=== PATIENT | female | born 1975 | race African-American/Black ===

== ENCOUNTER 2021-05-19 15:22 | Outpatient (RCR) | payer OTHER, SELFPAY ==
[2021-05-19 15:39] VITALS: PULSE 102; RESP 20; TEMP 36.3; O2SAT 96
[2021-05-19] MEDS: ACETAMINOPHEN 325 MG TABLET 650 MG PO (15:41)
[2021-05-19] MEDS: diphenhydrAMINE HCl CAP 25 MG CAPSULE PO (15:41)
[2021-05-19] MEDS: FAMOTIDINE 20 MG TABLET PO (15:41)
[2021-05-19 16:40] VITALS: BP 134/79
--- NOTE | 2021-05-20 10:46 | PC.NURSE ---
Spoke to Ms. Salazar, and she stated she is not coughing as much and slept better last night. She feels this is going to help her feel better. She has no other questions at this time.
== END 2021-05-19 17:00 ==
LOC: AMCINF 15:22
PROVIDERS: PCP Internal Medicine; Visit Provider Internal Medicine Hematology & Oncology
DX: U07.1 COVID-19 (principal)
CPT/HCPCS: A9270; M0243

== ENCOUNTER → 2022-03-03 14:20 | Outpatient (CLI) | payer OTHER, SELFPAY ==
--- NOTE | ~2022-03-03 | XR_ITS ---
EXAMINATION: XR lumbar spine min 4V DATE: 03/03/2022 14:34 INDICATION: Low back pain. TECHNIQUE: 5 views of lumbar spine were obtained. COMPARISON: None. FINDINGS: There is 7 degrees dextrocurvature of thoracolumbar spine. Vertebral body heights and inter vertebral disc heights are normal. There is multilevel mild to moderate facet joint osteoarthritis. T here is an intrauterine device in expected position. IMPRESSION: 1. Lumbar facet joint osteoarthritis. Reviewed, dictated and finalized at location A.
== END ==
PROVIDERS: PCP Family Medicine; Visit Provider Family Medicine
DX: M51.36 Other intervertebral disc degeneration, lumbar region (principal)
CPT/HCPCS: 72110

== ENCOUNTER 2022-08-24 12:31 | Outpatient (CLI) | payer OTHER, SELFPAY ==
[2022-08-24 20:19] LABS: Alanine Aminotransferase 32 U/L (6-35); Albumin Level 4.7 g/dL (3.5-5.1); Alkaline Phosphatase 69 U/L (38-126); Anion Gap 3 mmol/L (8-16); Aspartate Amino Transferase 37 U/L (14-36); Bilirubin,Total 0.8 mg/dL (0.2-1.3); Blood Urea Nitrogen 11 mg/dL (7-17); Calcium 9.7 mg/dL (8.4-10.2); Carbon Dioxide 35 mmol/L (22-30); Chloride 98 mmol/L (98-107); Cholesterol 188 mg/dL (0-200); Estimated Glomerular Filt Rate > 60; Glucose 94 mg/dL (65-110); HDL Direct 59 mg/dL; Potassium 3.9 mmol/L (3.4-5.0); Sodium 136 mmol/L (137-145); Triglycerides 68 mg/dL (<150)
[2022-08-24 20:31] LABS: LDL Cholesterol Direct 90 mg/dL
[2022-08-24 20:43] LABS: Basophils Percent Auto 0.6 % (0.2-1.2); Eosinophils Absolute Auto 0.1 K/mm3 (0-0.3); Eosinophils Percent Auto 2.5 % (0-4.4); Hematocrit 44.3 % (37.0-47.0); Hemoglobin 14.5 g/dL (12.0-15.0); Immature Granulocyte Absolute 0.01 K/mm3 (0.00-0.031); Immature Granulocyte Percent A 0.2 % (0-0.5); Lymphocytes Absolute Auto 1.81 K/mm3 (0.9-3.2); Lymphocytes Percent Auto 34.2 % (18.3-44.2); Mean Corpuscular HGB Conc 32.7 g/dl (32-36); Mean Corpuscular Hemoglobin 33.6 pg (26-34); Mean Corpuscular Volume 102.8 fl (80-100); Mean Platelet Volume 11.1 fl (7.4-10.4); Monocytes Absolute Auto 0.5 K/mm3 (0.1-0.6); Monocytes Percent Auto 9.1 % (2.6-8.5); Neutrophils Absolute Auto 2.8 K/mm3 (1.3-6.7); Neutrophils Percent Auto 53.4 % (45.5-73.1); Platelet Count Result 282 k/mm3 (150-375); Red Blood Count 4.31 M/mm3 (4.2-5.4); Red Cell Distribution Width 12.2 % (11.5-14.5); White Blood Count 5.3 K/mm3 (4.5-10.0)
== END 2022-08-24 12:32 | disposition home or self-care (01) ==
LOC: ANHGOSHLAB 12:32
PROVIDERS: PCP Family Medicine; Visit Provider Family Medicine
DX: R53.83 Other fatigue (principal); E11.9 Type 2 diabetes mellitus without complications; Z13.228 Encounter for screening for other metabolic disorders; Z13.220 Encounter for screening for lipoid disorders; Z13.29 Encounter for screening for other suspected endocrine disorder
CPT/HCPCS: 36415; 80053; 80061; 83036; 84443; 85025

== ENCOUNTER 2023-02-05 07:40 | Outpatient (CLI) | payer OTHER, SELFPAY ==
--- NOTE | ~2023-02-05 | MR_ITS ---
EXAMINATION: MR ankle RT wo con DATE: 02/05/2023 08:14 INDICATION: Peroneal tendinitis, right leg. Right ankle pain. TECHNIQUE: Magnetic resonance imaging (MRI) of the right ankle was performed without intravenous cont rast. Sequences included sagittal PD-weighted FS FSE, sagittal PD-weighted FSE, coronal PD-weighted F S FSE, coronal PD-weighted FSE, axial PD-weighted FS FSE, and axial PD-weighted FSE. COMPARISON: None. FINDINGS: Medial ankle ligaments: The superficial and deep components of the deltoid ligament are normal. Lateral ankle ligaments: The anterior and posterior talofibular ligaments, calcaneofibular ligament, and anterior and posterio r tibiofibular ligaments are normal. Tendons: There is mild Achilles tendinopathy. There is mild peroneus longus tendinopathy. There is a longitudi nal split tear of peroneus longus tendon lateral to calcaneus. Peroneus brevis tendon is normal. The anterior ankle tendons are normal. The medial ankle tendons are normal. Plantar fascia: Normal. There is an enthesophyte at the calcaneal attachment. Bones/other: There is mild ankle joint osteoarthritis with mild subchondral edema-like marrow signal intensity in tibial plafond. Fluid: There is no joint effusion. IMPRESSION: 1. Longitudinal split tear of peroneus longus tendon. 2. Mild tibiotalar joint osteoarthritis. Reviewed, dictated and finalized at location A.
== END 2023-02-05 07:41 ==
LOC: MICIMG 07:41
PROVIDERS: PCP Podiatrist Foot & Ankle Surgery; Visit Provider Podiatrist Foot & Ankle Surgery
DX: M76.71 Peroneal tendinitis, right leg (principal); M19.071 Primary osteoarthritis, right ankle and foot
CPT/HCPCS: 73721

== ENCOUNTER 2023-08-27 09:58 | Outpatient (CLI) | payer OTHER, SELFPAY ==
[2023-08-27 18:56] LABS: Basophils Percent Auto 0.7 % (0.2-1.2); Eosinophils Absolute Auto 0.2 K/mm3 (0-0.3); Eosinophils Percent Auto 4.1 % (0-4.4); Hematocrit 44.4 % (37.0-47.0); Hemoglobin 14.5 g/dL (12.0-15.0); Immature Granulocyte Absolute 0.01 K/mm3 (0.00-0.031); Immature Granulocyte Percent A 0.2 % (0-0.5); Lymphocytes Absolute Auto 1.16 K/mm3 (0.9-3.2); Mean Corpuscular HGB Conc 32.7 g/dl (32-36); Mean Corpuscular Hemoglobin 33.3 pg (26-34); Mean Corpuscular Volume 102.1 fl (80-100); Mean Platelet Volume 11.2 fl (7.4-10.4); Monocytes Absolute Auto 0.4 K/mm3 (0.1-0.6); Monocytes Percent Auto 9.9 % (2.6-8.5); Neutrophils Absolute Auto 2.4 K/mm3 (1.3-6.7); Neutrophils Percent Auto 57.1 % (45.5-73.1); Platelet Count Result 291 k/mm3 (150-375); Red Blood Count 4.35 M/mm3 (4.2-5.4); Red Cell Distribution Width 12.6 % (11.5-14.5); White Blood Count 4.2 K/mm3 (4.5-10.0)
[2023-08-27 19:58] LABS: Alanine Aminotransferase 35 U/L (6-35); Albumin Level 4.2 g/dL (3.5-5.1); Alkaline Phosphatase 66 U/L (38-126); Anion Gap 4 mmol/L (8-16); Aspartate Amino Transferase 58 U/L (14-36); Bilirubin,Total 0.5 mg/dL (0.2-1.3); Blood Urea Nitrogen 10 mg/dL (7-17); Calcium 9.4 mg/dL (8.4-10.2); Carbon Dioxide 33 mmol/L (22-30); Chloride 101 mmol/L (98-107); Cholesterol 168 mg/dL (0-200); Estimated Glomerular Filt Rate > 60; Glucose 94 mg/dL (65-110); HDL Direct 52 mg/dL; Potassium 2.9 mmol/L (3.4-5.0); Sodium 138 mmol/L (137-145); Triglycerides 68 mg/dL (<150)
[2023-08-27 20:00] LABS: Hemoglobin A1C 6.4 % (<5.7)
[2023-08-27 20:08] LABS: LDL Cholesterol Direct 89 mg/dL
== END 2023-08-27 09:59 | disposition home or self-care (01) ==
LOC: ANHGOSHLAB 09:59
PROVIDERS: PCP Family Medicine; Visit Provider Family Medicine
DX: Z13.228 Encounter for screening for other metabolic disorders (principal); Z13.29 Encounter for screening for other suspected endocrine disorder; R53.83 Other fatigue; Z13.220 Encounter for screening for lipoid disorders; R73.03 Prediabetes
CPT/HCPCS: 36415; 80053; 80061; 83036; 84443; 85025

== ENCOUNTER 2023-08-30 14:51 | Outpatient (CLI) | payer OTHER, SELFPAY ==
--- NOTE | ~2023-08-30 | US_ITS ---
US thyroid INDICATION: Nontoxic goiter TECHNIQUE: Real-time sonographic images of the thyroid gland were obtained. COMPARISON: No prior studies for comparison. FINDINGS: The right thyroid lobe measures 3.1 x 1.3 x 1.6 cm. The left thyroid lobe measures 1.6 x 4 .2 x 1.5 cm. There is normal echotexture and echogenicity throughout the thyroid gland. No discrete n odules identified. Normal vascular flow is present. IMPRESSION: 1. Normal thyroid without discrete nodule or abnormal vascularity. Reviewed, dictated and finalized at location A.
== END 2023-08-30 14:52 | disposition home or self-care (01) ==
LOC: ANHIMG 14:55
PROVIDERS: PCP Family Medicine; Visit Provider Family Medicine
DX: E04.9 Nontoxic goiter, unspecified (principal)
CPT/HCPCS: 76536

== ENCOUNTER 2023-09-14 08:24 | Outpatient (CLI) | payer OTHER, SELFPAY ==
[2023-09-14 13:53] LABS: Anion Gap 3 mmol/L (4-12); Blood Urea Nitrogen 13 mg/dL (7-17); Calcium 9.6 mg/dL (8.4-10.2); Carbon Dioxide 32 mmol/L (22-30); Chloride 103 mmol/L (98-107); Estimated Glomerular Filt Rate > 60; Glucose 100 mg/dL (65-110); Potassium 4.1 mmol/L (3.4-5.0); Sodium 138 mmol/L (137-145)
== END 2023-09-14 08:25 | disposition home or self-care (01) ==
LOC: ANHGOSHLAB 08:26
PROVIDERS: PCP Family Medicine; Visit Provider Family Medicine
DX: E87.6 Hypokalemia (principal)
CPT/HCPCS: 36415; 80048

== ENCOUNTER 2023-10-23 08:04 | Outpatient (CLI) | payer OTHER, SELFPAY ==
[2023-10-23 14:16] LABS: Anion Gap 5 mmol/L (4-12); Blood Urea Nitrogen 11 mg/dL (7-17); Calcium 9.1 mg/dL (8.4-10.2); Carbon Dioxide 30 mmol/L (22-30); Chloride 101 mmol/L (98-107); Estimated Glomerular Filt Rate > 60; Glucose 98 mg/dL (65-110); Potassium 3.3 mmol/L (3.4-5.0); Sodium 136 mmol/L (137-145)
== END 2023-10-23 08:05 | disposition home or self-care (01) ==
LOC: ANHGOSHLAB 08:07
PROVIDERS: PCP Family Medicine; Visit Provider Family Medicine
DX: Z13.228 Encounter for screening for other metabolic disorders (principal)
CPT/HCPCS: 36415; 80048

== ENCOUNTER 2024-02-26 09:27 | Outpatient (CLI) | payer OTHER, SELFPAY ==
[2024-02-26 13:35] LABS: Alanine Aminotransferase 23 U/L (6-35); Albumin Level 4.4 g/dL (3.5-5.1); Alkaline Phosphatase 66 U/L (38-126); Anion Gap 8 mmol/L (4-12); Aspartate Amino Transferase 39 U/L (14-36); Bilirubin,Total 0.8 mg/dL (0.2-1.3); Blood Urea Nitrogen 13 mg/dL (7-17); Calcium 9.7 mg/dL (8.4-10.2); Carbon Dioxide 32 mmol/L (22-30); Chloride 97 mmol/L (98-107); Cholesterol 191 mg/dL (0-200); Estimated Glomerular Filt Rate 45; Glucose 110 mg/dL (65-110); HDL Direct 52 mg/dL; Potassium 3.4 mmol/L (3.4-5.0); Sodium 137 mmol/L (137-145); Triglycerides 103 mg/dL (<150)
[2024-02-26 13:48] LABS: LDL Cholesterol Direct 94 mg/dL
[2024-02-26 14:28] LABS: Hemoglobin A1C 6.3 % (<5.7)
== END 2024-02-26 09:28 | disposition home or self-care (01) ==
LOC: ANHGOSHLAB 09:28
PROVIDERS: PCP Family Medicine; Visit Provider Family Medicine
DX: E78.49 Other hyperlipidemia (principal); R73.03 Prediabetes; Z13.228 Encounter for screening for other metabolic disorders
CPT/HCPCS: 36415; 80053; 80061; 83036

== ENCOUNTER 2024-04-05 08:28 | Emergency (ER) | payer OTHER, SELFPAY ==
--- NOTE | ~2024-04-05 | US_ITS ---
EXAMINATION: US pelvic complete INDICATION: Lower abdomen pain Comparison:No prior studies for comparison. TECHNIQUE: Multiple transabdominal and endovaginal sonographic images of the pelvis performed. FINDINGS: The uterus measures 12.8 x 5.4 x 2.5 cm. There is an IUD present. There are multiple naboth pa cysts. The right ovary measures 4.3 x 1.9 x 2.5 cm and the left ovary measures 4.1 x 3.6 x 3.3 cm . There are small follicles in each ovary. There is a 3.8 cm left ovarian cyst. Normal doppler signa l in both ovaries. There is no free fluid in the pelvis. There are no abnormal masses seen on either side. IMPRESSION: 1. Multiple nabothian cysts accounting for heterogeneous appearance of the cervix on prior CT examina tion. 2: Enlarged uterus. 3: Simple left ovarian cyst measuring 3.8 cm. Reviewed, dictated and finalized at location B. IMPRESSION: 1. Multiple nabothian cysts accounting for heterogeneous appearance of the cerv ix on prior CT examination. 2: Enlarged uterus. 3: Simple left ovarian cyst measuring 3.8 cm.
--- NOTE | ~2024-04-05 | CT_ITS ---
EXAMINATION: CT abdomen pelvis w con DATE: 04/05/2024 09:41 INDICATION: Constipation and fullness TECHNIQUE: Computed tomography (CT) of the abdomen and pelvis was performed with 100 cc Omnipaque 350 intravenous contrast. The dose-length product was 643.35 mGy-cm. Automated exposure control and iter ative reconstruction technique were employed. COMPARISON: None. FINDINGS: Lung bases unremarkable. Heart size normal. No significant pleural or pericardial effusion. Fatty infiltration of the liver. The spleen, pancreas, adrenal glands and kidneys are unremarkable. Nonobstructive bowel gas pattern. There is an IUD present. Lower uterine segment and cervix is hetero geneous. Recommend correlation with ultrasound. There is a 4.2 cm left adnexal cyst, likely ovarian. No significant vascular abnormality. No lymphadenopathy. Mild lumbar spondylosis. IMPRESSION: 1. Left adnexal cyst measuring 4.2 cm, likely ovarian. 2: Diffusely heterogeneous enlarged appearance to the lower uterine segment and cervix, suspicious fo r underlying mass. Consider correlation with pelvic ultrasound. Reviewed, dictated and finalized at location B. IMPRESSION: 1. Left adnexal cyst measuring 4.2 cm, likely ovarian. 2: Diffusely heterogeneous enlarged appearance to the lower uterine segment and cervix, suspicious for underlying mass. Consider correlation with pelvic ultra sound.
[2024-04-05 08:32] VITALS: BP 145/81; PULSE 80; RESP 15; TEMP 36.9; O2SAT 100
[2024-04-05 09:02] LABS: BEDSIDEPREGUCG Negative (Negative)
--- NOTE | 2024-04-05 09:05 | ED.GENADULT ---
HPI - General Adult General Chief complaint: Abdominal Pain Stated complaint: abdominal pain,left calf pain Time Seen by Provider: 04/05/24 08:43 History of Present Illness HPI narrative: 48-year-old female presenting to the emergency department for a nodule in her right armpit and and in right groin along with abdominal fullness and constipation for the last 2 days. Related Data Home Medications Medication Instructions Recorded Confirmed latanoprost (PF) 0.005 % eye drops 1 drp EACH EYE QPM 08/24/22 02/26/24 timolol maleate 0.5 % eye drops 1 drp EACH EYE Q12H 08/24/22 02/26/24 Allergies Allergy/AdvReac Type Severity Reaction Status Date / Time No Known Allergies Allergy Verified 02/26/24 09:06 Review of Systems Review of Systems: All systems reviewed & are unremarkable except as noted in HPI and below PMFSH Past Medical History Medical History Acute non-recurrent sinusitis Atypical chest pain Chest pain in adult Chronic bilateral low back pain without sciatica Esophageal dysphagia Nasal sinus congestion Other hyperlipidemia Seasonal allergic rhinitis Seasonal allergic rhinitis due to pollen Family History Family History Father Family history of glaucoma Sibling Patient's sister is in good health Patient's brother is in good health Social History Social History Social History: caffeine- 1/2 cup coffee 2X weekly Smoking status: Never smoker Second hand tobacco smoke exposure: No Alcohol intake: current Alcohol use details: Occasionally Substance use: never Lack of Transportation: No Lack of Food: Never True Current Housing: I Have Housing Concerned About Future Housing: No Difficulty Paying Gas/Electric Bills: No Difficulty Paying for Meds: No Currently Unemployed: No Education: Associate Degree Difficulty w/ Childcare or Family Care: No Spiritual care concerns: No Exam Narrative: APPEARANCE: Well appearing, no pain, no distress, well-nourished. HEAD: normocephalic, atraumatic. EYES: PERRLA/EOMI, conjunctivae clear. NOSE: Normal no drainage EARS:TMS clear with good light reflex. THROAT: Pharynx clear, no exudate. NECK: Supple. No adenopathy, no masses. RESPIRATORY: Airway patent, respirations nonlabored. Clear to auscultation bilaterally, no rales, rhonchi, wheezing. CARDIOVASCULAR: Regular rate and rhythm without murmurs rubs or gallops. ABDOMINAL: Soft, nontender, nondistended, normal bowel sounds MUSCULOSKELETAL: Moves all extremities. Strength/ROM intact, No edema, No calf tenderness. NEURO: Alert. Cranial nerves II through XII intact. Good gait. Good coordination SKIN: Palpable lymph node in the right armpit with no of cellulitis or abscess Course Vital Signs Vital signs: Vital Signs Temperature 98.4 F 04/05/24 08:32 Pulse Rate 80 04/05/24 08:32 Respiratory Rate 15 04/05/24 08:32 Blood Pressure 145/81 H 04/05/24 08:32 Pulse Oximetry 100 04/05/24 08:32 Oxygen Delivery Room Air 04/05/24 08:32 Temperature 98.0 F 04/05/24 12:17 Pulse Rate 74 04/05/24 12:17 Respiratory Rate 15 04/05/24 12:17 Blood Pressure 122/64 04/05/24 12:17 Pulse Oximetry 98 04/05/24 12:17 Oxygen Delivery Room Air 04/05/24 09:47 Medical Decision Making [facility] Narrative Medical decision making narrative: 48-year-old female presents emergency department for evaluation for multiple complaints including groin abscess, axillary abscess and abdominal discomfort. Patient is afebrile with no leukocytosis and hemoglobin of 13.3. Patient has no significant abnormalities on her CMP UA was positive for urinary tract infection. Patient had been started on antibiotics, doxycycline for suspected resolving abscesses. Patient was also started on Keflex for a urinary tract infection. Differenti
[2024-04-05 09:06] LABS: Basophils Percent Auto 0.6 % (0.2-1.2); Eosinophils Absolute Auto 0.2 K/mm3 (0-0.3); Eosinophils Percent Auto 3.3 % (0-4.4); Hematocrit 39.7 % (37.0-47.0); Hemoglobin 13.3 g/dL (12.0-15.0); Immature Granulocyte Absolute 0.01 K/mm3 (0.00-0.031); Immature Granulocyte Percent A 0.2 % (0-0.5); Lymphocytes Absolute Auto 1.26 K/mm3 (0.9-3.2); Lymphocytes Percent Auto 26.3 % (18.3-44.2); Mean Corpuscular HGB Conc 33.5 g/dl (32-36); Mean Corpuscular Hemoglobin 34.6 pg (26-34); Mean Corpuscular Volume 103.4 fl (80-100); Mean Platelet Volume 10.6 fl (7.4-10.4); Monocytes Absolute Auto 0.4 K/mm3 (0.1-0.6); Monocytes Percent Auto 9.2 % (2.6-8.5); Neutrophils Absolute Auto 2.9 K/mm3 (1.3-6.7); Neutrophils Percent Auto 60.4 % (45.5-73.1); Platelet Count Result 305 k/mm3 (150-375); Red Blood Count 3.84 M/mm3 (4.2-5.4); Red Cell Distribution Width 12.3 % (11.5-14.5); White Blood Count 4.8 K/mm3 (4.5-10.0)
[2024-04-05 09:12] LABS: Add Urine Microscopic? YES; Appearance Urine Cloudy (Clear); Bacteria Urine Rare /hpf; Bilirubin Urine Negative (Negative); Blood Urine 3+ (Negative); Color Urine Yellow (Yellow); Glucose Urine UA Negative (Negative); Ketones Urine Negative (Negative); Leukocyte Esterase Ur 3+ LEU/UL (Negative); Nitrate Urine Negative (Negative); Non Pathogenic Casts 0-2; Protein Urine Trace mg/dL (Negative); Specific Grav Ur 1.007 (1.001-1.035); Squamous Epithelial Cell Urine Few /hpf (Few); Urobilinogen Urine 0.2 mg/dL (<2.0); WBC Urine 21-50 /hpf (0-3)
[2024-04-05 09:21] LABS: Alanine Aminotransferase 28 U/L (6-35); Albumin Level 4.2 g/dL (3.5-5.1); Alkaline Phosphatase 67 U/L (38-126); Anion Gap 7 mmol/L (4-12); Aspartate Amino Transferase 29 U/L (14-36); Bilirubin,Total 0.4 mg/dL (0.2-1.3); Blood Urea Nitrogen 8 mg/dL (7-17); Calcium 9.2 mg/dL (8.4-10.2); Carbon Dioxide 30 mmol/L (22-30); Chloride 99 mmol/L (98-107); Estimated CRCL calculation 70 ml/min; Estimated Glomerular Filt Rate > 60; Glucose 114 mg/dL (65-110); Lipase 196 U/L (23-300); Potassium 3.1 mmol/L (3.4-5.0); Sodium 136 mmol/L (137-145)
[2024-04-05 09:47] VITALS: BP 120/54; PULSE 75; RESP 18; O2SAT 98
[2024-04-05] MEDS: SODIUM CHLORIDE 0.9% IV 1,000 ML 999 ML IV CONT (09:47)
[2024-04-05 10:53] VITALS: BP 120/54; PULSE 75; RESP 18; O2SAT 99
[2024-04-05] MEDS: DOXYCYCLINE HYCLATE 100 MG TABLET PO (11:02)
[2024-04-05 12:17] VITALS: BP 122/64; PULSE 74; RESP 15; TEMP 36.7; O2SAT 98
== END 2024-04-05 12:18 | disposition home or self-care (01) ==
PROVIDERS: Emergency Provider Emergency Medicine; PCP Family Medicine
DX: L02.411 Cutaneous abscess of right axilla (principal); L02.214 Cutaneous abscess of groin; N39.0 Urinary tract infection, site not specified; E78.49 Other hyperlipidemia; Z79.899 Other long term (current) drug therapy
CPT/HCPCS: 36415; 74177; 76856; 80053; 81001; 81025; 83690; 85025; 87086; 96360; 99284; A9270; J7030; Q9967

== ENCOUNTER 2024-07-05 10:20 | Emergency (ER) | payer OTHER, SELFPAY ==
[2024-07-05] VITALS (13 sets, daily range): BP systolic 121–153; BP diastolic 82–91; PULSE 60–73; RESP 11–18; TEMP 36.7; O2SAT 96–99
--- NOTE | ~2024-07-05 | XR_ITS ---
EXAMINATION: XR chest 2V DATE: 07/05/2024 10:50 INDICATION: Chest pain. TECHNIQUE: Frontal and lateral views of the chest were obtained. COMPARISON: CT abdomen and pelvis 04/05/2024 FINDINGS: There is no pneumonia, pleural effusion, or pneumothorax. The heart size is normal. IMPRESSION: 1. No acute cardiopulmonary disease. Reviewed, dictated and finalized at location A. TAILER
--- NOTE | 2024-07-05 10:23 | ECG_ITS ---
Test Date: 2024-07-05 10:27:01 Measurements Intervals [place] Rate: 67 P: 6 WI: 162 QRS: 5 QRSD: 78 T: 23 QT: 377 QTc: 399 Interpretive Statements SINUS RHYTHM No previous ECG available for comparison Electronically Signed On 07-05-2024 10:49:33 SECURITIES ANALYST by Kilo Cuba M.D.
[2024-07-05 10:52] LABS: Basophils Percent Auto 0.8 % (0.2-1.2); Eosinophils Absolute Auto 0.1 K/mm3 (0-0.3); Eosinophils Percent Auto 2.6 % (0-4.4); Hematocrit 43.7 % (37.0-47.0); Hemoglobin 14.6 g/dL (12.0-15.0); Immature Granulocyte Absolute 0.01 K/mm3 (0.00-0.031); Immature Granulocyte Percent A 0.3 % (0-0.5); Lymphocytes Absolute Auto 1.07 K/mm3 (0.9-3.2); Lymphocytes Percent Auto 27.7 % (18.3-44.2); Mean Corpuscular HGB Conc 33.4 g/dl (32-36); Mean Corpuscular Hemoglobin 34.3 pg (26-34); Mean Corpuscular Volume 102.6 fl (80-100); Mean Platelet Volume 10.6 fl (7.4-10.4); Monocytes Absolute Auto 0.4 K/mm3 (0.1-0.6); Monocytes Percent Auto 10.4 % (2.6-8.5); Neutrophils Absolute Auto 2.3 K/mm3 (1.3-6.7); Neutrophils Percent Auto 58.2 % (45.5-73.1); Platelet Count Result 277 k/mm3 (150-375); Red Blood Count 4.26 M/mm3 (4.2-5.4); Red Cell Distribution Width 12.1 % (11.5-14.5); White Blood Count 3.9 K/mm3 (4.5-10.0)
[2024-07-05] MEDS: ASPIRIN 81 MG CHEWABLE TABLET 324 MG PO (10:56)
[2024-07-05 11:03] LABS: Alanine Aminotransferase 31 U/L (6-35); Albumin Level 4.2 g/dL (3.5-5.1); Alkaline Phosphatase 65 U/L (38-126); Anion Gap 4 mmol/L (4-12); Aspartate Amino Transferase 28 U/L (14-36); Bilirubin,Total 0.7 mg/dL (0.2-1.3); Blood Urea Nitrogen 9 mg/dL (7-17); Calcium 8.8 mg/dL (8.4-10.2); Carbon Dioxide 26 mmol/L (22-30); Chloride 106 mmol/L (98-107); Estimated CRCL calculation 82 ml/min; Estimated Glomerular Filt Rate > 60; Glucose 108 mg/dL (65-110); Lipase 225 U/L (23-300); Potassium 4.3 mmol/L (3.4-5.0); Sodium 136 mmol/L (137-145)
[2024-07-05 11:06] LABS: Partial Thromboplastin Time 34.3 Seconds (22.3-36.8); Prothrombin Time 13.9 Seconds (11.1-14.7)
[2024-07-05 11:14] LABS: Troponin I < 0.012 ng/mL (0.000-0.034)
[2024-07-05] MEDS: BELLADONNA ALK/PHENOB ELIX 10 ML, MAG HYDROX/ALUMINUM HYD/SIMETH 30 ML, LIDOCAINE 2% VI... PO (11:31)
--- NOTE | 2024-07-05 12:28 | ED.CHESTPAIN ---
HPI - Chest Pain General Chief Complaint: Chest Pain Stated Complaint: chest pain starting this am Time Seen by Provider: 07/05/24 10:33 Source: patient Mode of arrival: ambulatory Limitations: no limitations History of Present Illness HPI narrative: This is a 49F with history of HTN and hyperlipidemia who presents to the emergency department complaining of left side chest pain for the past 2 hours. She states she was having a bowel movement when the pain began. She describes it as dull, radiating to the left neck and rated 6/10. It lasted approximately 20 minutes and resolved spontaneously. She denies associated nausea, vomiting, shortness of breath, weakness, loss of consciousness or cold sweats. It has since recurred once, lasting less than a second. She has no other complaints at this time. Related Data Home Medications ?Medication ?Instructions ?Recorded ?Confirmed ?Last Taken ?Type latanoprost (PF) 0.005 % eye drops 1 drp EACH EYE QPM 08/24/22 04/11/24 Unknown History timolol maleate 0.5 % eye drops 1 drp EACH EYE Q12H 08/24/22 04/11/24 Unknown History Allergies Allergy/AdvReac Type Severity Reaction Status Date / Time No Known Allergies Allergy Verified 07/05/24 10:38 Review of Systems Review of Systems: All systems reviewed & are unremarkable except as noted in HPI and below PMFSH Past Medical History Medical History Acute non-recurrent sinusitis Atypical chest pain Chest pain in adult Chronic bilateral low back pain without sciatica Esophageal dysphagia Nasal sinus congestion Other hyperlipidemia Seasonal allergic rhinitis due to pollen Seasonal allergic rhinitis Family History Family History Father Family history of glaucoma Sibling Patient's sister is in good health Patient's brother is in good health Social History Social History Social History: caffeine- 1/2 cup coffee 2X weekly Smoking status: Never smoker Second hand tobacco smoke exposure: No Alcohol intake: current Alcohol use details: Occasionally Substance use: never Lack of Transportation: No Lack of Food: Never True Current Housing: I Have Housing Concerned About Future Housing: No Difficulty Paying Gas/Electric Bills: No Difficulty Paying for Meds: No Currently Unemployed: No Education: Associate Degree Difficulty w/ Childcare or Family Care: No Spiritual care concerns: No Exam Narrative: GENERAL: Well-developed, well-nourished, and in no acute distress. HEAD: Normocephalic, atraumatic. EYES: PERRLA and EOMI. CHEST: Clear to auscultation. No respiratory distress. No wheezes rales or rhonchi HEART: Regular rate and rhythm. No murmur heard. Normal peripheral pulses. ABDOMEN: Soft, nontender, nondistended, normal active bowel sounds. EXTREMITIES: Normal range of motion. No edema. SKIN: Warm, dry, no rash. NEURO: Alert and oriented x3. No focal deficit. Moving all 4 limbs spontaneously PSYCH: Normal mood and affect. Course Course Emergency Course: 11:00 - Initial troponin negative. EKG not concerning for ischemia. Heart score 2. Will repeat troponin and reassess. 14:10 - Repeat troponin negative. CBC demonstrates mildly decreased white blood cell count of 3.9 but is otherwise unremarkable. Chemistries within normal limits, including a normal lipase. Chest x-ray not concerning for acute cardiopulmonary process. INR within normal limits. Will discharge with recommendation for primary care follow-up. I discussed the findings and recommendations with the patient. Discussed return and emergency precautions including signs/symptoms of ACS and respiratory distress. The patient voiced understanding and agreement with the plan. All questions answered to her satisfaction. Vital Signs Vital signs: Vital Signs Temperature 98.1 F 07/05/24 10:34 Pulse Rate 70 07/05/24 10:34 Respiratory Rate 12 07/05/24 10:34 Blood Pressure 153/87 H 07/05/24 10:34 Pulse Oximetry 99 07/05/24 10:34 Oxygen Delivery Room Air 07/05/24 10:34 Temperature 98.1 F 07/05/24 14:19 Pulse Rate 60 07/05/24 14:19 Respiratory Rate 13 07/05/24 14:19 Blood Pressure 121/83 07/05/24 14:19 Pulse Oximetry 99 07/05/24 14:19 Oxygen Delivery Room Air 07/05/24 10:34 MDM - Chest Pain MDM Narrative Medical decision making narrative: Plan: labs, troponin, EKG, imaging, reassess Differential Diagnosis Differential diagnosis: Likely pneumothorax, atypical chest pain, costochondritis and other (ACS, pleurisy, GERD, pneumonia, metabolic abnormality, other) Lab Data 07/05/24 10:46 07/05/24 10:46 Labs: Lab Results 07/05/24 07/05/24 Range/Units 10:46 13:27 WBC 3.9 L (4.5-10.0) K/mm3 RBC 4.26 (4.2-5.4) M/mm3 Hgb 14.6 (12.0-15.0) g/dL Hct 43.7 (37.0-47.0) % MCV 102.6 H (80-100) fl MCH 34.3 H (26-34) pg MCHC 33.4 (32-36) g/dl RDW 12.1 (11.5-14.5) % Plt Count 277 (150-375) k/mm3 MPV 10.6 H (7.4-10.4) fl Immature Gran % (Auto) 0.3 (0-0.5) % Neut % (Auto) 58.2 (45.5-73.1) % Lymph % (Auto) 27.7 (18.3-44.2) % [place] % (Auto) 10.4 H (2.6-8.5) % Eos % (Auto) 2.6 (0-4.4) % Baso % (Auto) 0.8 (0.2-1.2) % Lymph # (Auto) 1.07 (0.9-3.2) K/mm3 [place] # (Auto) 0.4 (0.1-0.6) K/mm3 Eos # (Auto) 0.1 (0-0.3) K/mm3 Baso # (Auto) 0.0 (0.0-0.1) K/mm3 Abs Immat Gran (auto) 0.01 (0.00-0.031) K/mm3 Absolute Neuts (auto) 2.3 (1.3-6.7) K/mm3 Absolute Nucleated RBC 0.000 (0.0-0.012) K/mm3 Nucleated RBC % 0.0 (0.0-0.2) % PT 13.9 (11.1-14.7) Seconds INR 1.0 APTT 34.3 (22.3-36.8) Seconds Sodium 136 L (137-145) mmol/L Potassium 4.3 (3.4-5.0) mmol/L Chloride 106 (98-107) mmol/L Carbon Dioxide 26 (22-30) mmol/L Anion Gap 4 (4-12) mmol/L BUN 9 (7-17) mg/dL Creatinine 0.75 (0.7-1.0) mg/dL Estim Creat Clear Calc 82 ml/min Estimated GFR > 60 (59 - ) Glucose 108 (65-110) mg/dL Calcium 8.8 (8.4-10.2) mg/dL Total Bilirubin 0.7 (0.2-1.3) mg/dL AST 28 (14-36) U/L ALT 31 (6-35) U/L Alkaline Phosphatase 65 (38-126) U/L Troponin I < 0.012 < 0.012 (0.000-0.034) ng/mL Total Protein 8.0 (6.3-8.2) g/dL Albumin 4.2 (3.5-5.1) g/dL Lipase 225 (23-300) U/L ECG Data EKG #1: Attestation: I personally reviewed and interpreted this ECG as follows: ECG completion date: 07/05/24 ECG completion time: 10:27 Prior ECG tracings: not available for review Interpretation: Sinus rhythm, rate 67, normal axis, no ST segment elevations or T-wave inversions concerning for ischemia, normal intervals with QTc of 399 EKG #2: Attestation: I personally reviewed and interpreted this ECG as follows: ECG completion date: 07/05/24 ECG completion time: 13:25 Prior ECG tracings: available for review Interpretation: Sinus rhythm, rate 60, normal axis, no ST segment elevations or T wave inversions concerning for ischemia. Normal intervals with QTc of 409. No significant change compared to EKG done earlier today. Discharge Plan Discharge Clinical Impression: Atypical chest pain Patient Disposition: Home, Self-Care Condition: Stable Instructions: Antibiotic Form, Chest Wall Pain (ED) Additional Instructions: You were seen in the emergency department. Your labs and EKG were not concerning for injury to the heart. I recommend following up with your primary care doctor. If you develop new or worsening chest pain, shortness of breath, loss of consciousness, or if you have other emergent concerns for life, limb, or eyesight, return to the emergency department. Patient Language: Occitan Prescriptions: No Action latanoprost (PF) 0.005 % drops 1 drp EACH EYE QPM timolol maleate 0.5 % drops 1 drp EACH EYE Q12H doxycycline hyclate 100 mg tablet 100 mg PO Q12H 7 Days Qty: 14 0RF cephalexin 500 mg capsule 500 mg PO Q8H 7 Days Qty: 21 0RF atorvastatin 20 mg tablet 20 mg PO DAILY Qty: 90 1RF Rx Instructions: take 1 tablet by mouth every day metoprolol succinate 50 mg tablet extended release 24 hr 50 mg PO DAILY Qty: 90 1RF potassium chloride 20 mEq tablet extended release 20 meq PO DAILY Qty: 90 1RF hydrochlorothiazide 25 mg tablet 25 mg PO DAILY Qty: 90 1RF Follow-up/Referrals: Antonio Varghese DO [Primary Care Provider] - 1 Week Time of Disposition: 14:11
--- NOTE | 2024-07-05 13:16 | ECG_ITS ---
Test Date: 2024-07-05 13:25:27 Measurements Intervals [place] Rate: 60 P: 4 NM: 174 QRS: -7 QRSD: 83 T: 12 QT: 407 QTc: 409 Interpretive Statements SINUS RHYTHM Compared to ECG 07/05/2024 10:27:01 No significant changes Electronically Signed On 07-06-2024 09:56:47 OFFICE RN by Kilo Cuba M.D.
[2024-07-05 13:55] LABS: Troponin I < 0.012 ng/mL (0.000-0.034)
--- OUTSIDE RECORDS SUMMARY | 2024-07-10 08:50 | XMS_ITS | Continuity of Care Document ---
Author Organization [facility] Address [address] [place] [address] Phone Care Team Providers Care Tree Deadener Name Role Phone Sinjovany DIRECTOR OF CORPORATE SPONSORSHIPS-BC, Bernarda Unavailable Unavailable Rodri RN, Raquel Unavailable Unavailable Procedures Procedure Date Voided Encounter Advance Directives Directive Yes / No Effective Date File Name No Information Encounters Encounter Description Practice Location Reason(s) For Visit Diagnoses Date Provider Providers Copied on Encounter Spoke [facility] , [address], [place], [place], [id number], tel:[phone] Spoke On David No Information Sindel Bernarda. [address], [place], [place], [id number], . tel:[phone] Consulting Provider: Raquel Mace, [address], [place], [address]. tel:[phone] Spoke [facility] , [address], [place], [place], [id number], tel:[phone] Spoke On Page No Information Sindel Bernarda. [address], [place], [place], [id number], . tel:[phone] Family History Family Member Type Diagnosis Age At Onset No Information Payers Payer name Insurance type Covered democrat ID Authoriza tion(s) No Information Social History Type Description Quantity Date Captured Comments Sex Female Smoking Status No Information Chief Complaint And Reason For Visit No Information Reason For Referral Reason For Referral No Information History Of Present Illness Encounter Date Complaint History Of Prese nt Illness No Information Functional Status Date Functional Assessmen t No Information Instructions Date Instruction Additional Infor mation No Information Assessments Type Assessment Date No Information Patient Care Teams Name Effective Dates (start - stop) Status Members No Information
--- OUTSIDE RECORDS SUMMARY | 2024-07-10 08:50 | XMS_ITS | Clinical Summary ---
Author Organization [facility] Address [address] [place] [address] Care Team Providers Care Joiners Supervisor Name Role Phone Antonio Varghese Primary Care Provider [phone] Allergies No known active allergies Medications atorvastatin (LIPITOR) 20 mg tablet take 1 tablet by oral route every day 0 0 5 Active COMBIGAN 0.2-0.5 % ophthalmic solution 3 7 Active latanoprost (XALATAN) 0.005 % ophthalmic solution INT 1 GTT IN OU QHS 0 Active iron 18 mg tablet Take by mouth Active levonorgestreL (MIRENA) IUD 1 each by intrauterine route once Active polyethylene glycol (GoLYTELY) 236-22.74-6.74 -5.86 gram solution On 07/05/21 at 6 pm, drink 1/2 of jug of Nulytely. On 07/06/21 at 5 am, drink remaining 1/2 of jug of Nulytely until jug empty. 4000 mL 1 Active Additional Information Patient not taking.Reported on 03/22/2022 hydroCHLOROthi azide (HYDRODIURIL) 25 mg tablet Take 1 tablet (25 mg total) by mouth daily Active clotrimazole-b etamethasone (LOTRISONE) creamIndicatio ns:Yeast infection of the skin Apply topically 2 (two) times a day 30 g 2 Active Additional Information Patient not taking.Reported on 04/16/2024 amLODIPine (NORVASC) 5 mg tablet Take 1 tablet (5 mg total) by mouth daily Active potassium chloride ER 10 mEq CR tablet Take 1 tablet/capsule (10 mEq total) by mouth 2 (two) times a day Active latanoprost (XALATAN) 0.005 % ophthalmic solution 1 drop nightly Activ e timoloL (BETIMOL) 0.5 % ophthalmic solution 1 drop 2 (two) times a day Active olmesartan (BENICAR) 20 mg tablet Take 1 tablet (20 mg total) by mouth daily Active potassium chloride (KLOR-CON) 20 mEq packet Take 1 packet (20 mEq total) by mouth 2 (two) times a day Dissolve each packet in at least 4 ounces (120 mL) of cold water or other beverage prior to administration. Active valACYclovir (VALTREX) 1 gram tablet Take 1 tablet (1,000 mg total) by mouth every 12 (twelve) hours 180 tablet 1 4 Active metroNIDAZOLE (FLAGYL) 500 mg tablet Take 1 tablet (500 mg total) by mouth 2 (two) times a day for 7 days 14 tablet 5 06/30/19 25 Hospital, Clinic, or Other Facility Administered Medication Ordered Dose Route Frequency Start Date End Date Status levonorgestreL (MIRENA) 20 mcg/24 hours (6 yrs) 52 mg IUDIndications:Enc ounter for insertion of Mirena IUD intrauterine Continuous (implanted device) 08/18/2020 Active Active Problems Problem Noted Date Diagnosed Date Encounter for insertion of Mirena IUD 08/16/2020 Overview (03/17/2021): Replaced to decrease bleeding and pain Dysplasia of cervix, low grade (JACK 1) 6 Overview (05/03/2023): Pap 11/2014 NILM/HPV+ (non-16/18) Pap 12/2015 ASCUS/HPV+ (non-16/18) 01/2016 colpo/bx/ECC: CIN1 on biopsy, ECC neg Pap 12/2016 ASCUS/HPV 18+ Pap 12/2017 NILM/HPV+ 02/2018 colpo/ECC: neg Pap 02/2019: NILM/HPV 18+ Pap 02/2020: ASCUS/HPV+ 06/2020 colpo/bx/ECC: CIN1 on biopsy, ECC neg Pap 02/2021: NILM/HPV neg Pap 03/2022: ASCUS/HPV neg Pap 03/2023: NILM/HPV 18+ Colpo 05/03/23: Intraocular pressure increase, bilateral 015 Overview (07/14/2020): Eye drops HPV (human papilloma virus) infection 06/18/2010 Overview (07/14/2020): Abnormal pap smear; Outcome: +HPV only Hyperlipidemia Encounters Date Type Department Care Team Description 06/20/2024 E-Visit [facility] [address] [place] [phone] Maggie Omalley, MECHANICAL SUPERVISOR Your Medications 06/02/2024 12:38 PM TAILINGS WORKER - 06/02/2024 11:59 PM TAILINGS WORKER Hospital Encounter [address] [place] [address] Screening mammogram, encounter for Discharge Disposition: Discharge to home or self care 04/30/2024 3:42 PM TAILINGS WORKER - 04/30/2024 11:59 PM TAILINGS WORKER Hospital Encounter [address] [address] Pelvic and perineal pain Discharge Disposition: Discharge to home or self care 04/30/2024 9:00 AM TAILINGS WORKER Clinical Support [address] [phone] Pelvic and perineal pain (Primary Dx) 04/16/2024 9:16 PM CDT - 04/16/2024 11:59 PM CDT Hospital Encounter [facility] [address] [place] [phone] Vaginal discharge Discharge Disposition: Discharge to home or self care 04/16/2024 9:05 AM CDT - 04/16/2024 11:59 PM CDT Hospital Encounter [address] [address] Pelvic and perineal pain Discharge Disposition: Discharge to home or self care 04/16/2024 8:35 AM CDT - 04/16/2024 11:59 PM CDT Hospital Encounter [address] [address] Cervical cancer screening Discharge Disposition: Discharge to home or self care 04/16/2024 7:45 AM CDT Office Visit [facility] [address] [place] [phone] Maggie Omalley, MECHANICAL SUPERVISOR Encounter for gynecological examination (general) (routine) without abnormal findings (Primary Dx); Cervical cancer screening; Pelvic mass; Pelvic and perineal pain; Vaginal discharge 04/16/2024 Orders Only [address] [phone] Maggie Omalley, MECHANICAL SUPERVISOR from Last 3 Months Immunizations Name Administration Dates Next Due HPV9 10/31/2023,07/03/2023,05/03/2023 Surgical History Surgery Date Site/Laterality Comments D&C FIRST TRIMESTER / TX INCOMPLETE / MISSED / SEPTIC / INDUCED 06/18/1990 - 06/17/1991 : induced COLPOSCOPY W/ BIOPSY / CURETTAGE 2010 and 2015 Abnormal pap smear: colposcopy APPENDECTOMY OPEN 06/18/2001 - 06/17/2002 TUBAL LIGATION 06/18/2011 - 06/17/2012 APPENDECTOMY 09/22/2001 Medical History Medical History Date Comments History of sexually transmit sandra disease STI Hyperlipidemia Dysplasia of cervix, low grade (JACK 1) 2015 and 2020 colpo with bx done Encounter for insertion of Mirena IUD 2006 Mirena IUD (no strings); Removed 2011 HPV (human papilloma virus) infection 2010 Abnormal pap smear; Outcome: +HPV only Elbow fracture, right 2004 sling only , no surgery Intraocular pressure increas e, bilateral 2014 Eye drops Anemia Family history of breast cancer MGM, 2 maternal aunts, mother dec'd with pancreatic cancer Encounter for insertion of Mirena IUD 08/2020 Replaced to decrease bleeding and pain Hypertension Ovarian cyst Family History Medical History Relation Name Comments Hypertension Father Austyn Other Father Austyn Alive and well; Colon cancer Maternal Grandfather Breast cancer Maternal Grandmother Allergies Mother Del Cancer Mother Del Pancreatic cancer Mother Del Non-Hodgkin's Lymphoma Mother's Sister 1 Breast cancer Mother's Sister 2 TNBC Breast cancer Mother's Sister 3 Relation Name Status Comments Father Austyn Alive Maternal Grandfather Maternal Grandmother Mother Del Mother's Sister 1 Alive Mother's Sister 2 Mother's Sister 3 Paternal Grandfather Paternal Grandmother Social History Tobacco Use Types Packs/Day Years Used Date Smoking Tobacco: Never Cigarettes Smokeless Tobacco: Never Tobacco Cessation:Counseling Given: Not Answered Alcohol Use Standard Drinks/Week Comments Yes 0 (1 standard drink = 0.6 oz pur e alcohol) AUDIT-C Answer Date Recorded Q1: How often do you have a drink containing alc ohol? 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 Not on file Not on fi le Obstetrics History Para Term AB IAB SAB Ectopic Multiple Livin g Live Births 5 3 2 2 3 Date Outcome GA Total Labor Labor/2nd/3rd Weight Sex Type Anes PTL Kim A1 A5 Name Clin Para Para Para IAB IAB Last Filed Vital Signs Vital Sign Reading Time Taken Comments Blood Pressure 120/80 04/16/2024 7:47 AM CDT Pulse 73 07/06/2021 12:00 PM TAILINGS WORKER Temperature 36 ??C (96.8 ??F) 07/06/2021 11:38 AM TAILINGS WORKER Respiratory Rate 15 07/06/2021 12:00 PM TAILINGS WORKER Oxygen Saturation 99% 07/06/2021 12:00 PM TAILINGS WORKER Inhaled Oxygen Concentration - - Weight 90.7 kg (200 lb) 04/16/2024 7:47 AM CDT Height 157.5 cm (5' 2 ) 04/16/2024 7:47 AM CDT Body Mass Index 36.58 04/16/2024 7:47 AM CDT Plan of Treatment Health Maintenance Due Date Last Done Comments Hepatitis C Screening 1975 DTaP/Tdap/Td Vaccine (1 - Tdap) 1986 Hepatitis B Screening 1993 Depression Screening 12/24/2018 12/24/2017 Influenza Vaccine (#1) 2024 Cervical Cancer Screening 04/16/20252023, 04/16/2024, 03/26/2023, Additional history exists Regular Well Visit/Exam 18-64 04/16/2025 04/16/2024, 03/26/2023, 03/22/2022, Additional history exists Breast Cancer Screening-Mammogram 06/02/2025 06/02/2024, 05/22/2023, 05/15/2022, Additional history exists Colon Cancer Screening-Colonoscopy 07/06/2031 07/06/2021 Pneumococcal vaccine <65 Aged Out No longer eligible based on patient's age to complete this topic Procedures Procedure Name Priority Date/Time Associated Diagnosis Comments SCREENING MAMMOGRAM BILATERAL W DWIGHT Schedule Routine, Read Routine (OP Routine) 06/02/2024 1:00 PM TAILINGS WORKER Screening mammogram, encounter for URINE CULTURE Routine 04/30/2024 6:40 PM TAILINGS WORKER Pelvic and perineal pain POCT URINALYSIS DIPSTICK Routine 04/30/2024 3:41 PM TAILINGS WORKER Pelvic and perineal pain VAGINITIS PANEL Routine 04/16/2024 9:00 PM CDT Vaginal discharge URINE CULTURE Routine 04/16/2024 12:26 PM CDT Pelvic and perineal pain PAP AND HIGH RISK HPV, REFLEX TO GENOTYPING Routine 04/16/2024 10:46 AM CDT HIGH RISK HPV DNA DETECTION WITH GENOTYPING Routine 04/16/2024 8:35 AM CDT Cervical cancer screening POCT URINALYSIS DIPSTICK Routine 04/16/2024 8:12 AM CDT Pelvic and perineal pain COLONOSCOPY 07/06/2021 10:41 AM TAILINGS WORKER from Last 3 Months or Most Recently Relevant to Health Maintenance Results * Screening Mammogram Bilateral W Dwight (06/02/2024 1:00 PM TAILINGS WORKER) Anatomical Region Laterality Modality Breast Bilateral Mammography Narrative 06/02/2024 5:00 PM TAILINGS WORKER Mammogram Technique: Bilateral Digital Breast Tomosynthesis, Bilateral C-view 2D Screening mammogram. ??Views obtained: ??bilateral craniocaudal and bilateral mediolateral oblique. ??Computer Aided Detection was performed. Mammogram Findings: The present examination has been compared to prior imaging studies performed at [facility] on 11/19/2014, 12/22/2015, 12/22/2016, 12/24/2017, 03/08/2020, 05/10/2021, 05/15/2022 and 05/22/2023. There are scattered areas of fibroglandular density. There is no suspicious abnormality in either breast. There are no significant changes from the prior study. Impression: There is no mammographic evidence of malignancy. Annual screening mammography is recommended. OVERALL FINAL ASSESSMENT: BI-RADS CATEGORY 1: ??Negative. Procedure Note Ruby Inman MD - 06/02/2024 Mammogram Technique: Bilateral Digital Breast Tomosynthesis, Bilateral C-view 2D Screening mammogram. Views obtained: bilateral craniocaudal and bilateral mediolateral oblique. Computer Aided Detection was performed. Mammogram Findings: The present examination has been compared to prior imaging studies performed at [facility] on 11/19/2014, 12/22/2015, 12/22/2016, 12/24/2017, 03/08/2020, 05/10/2021, 05/15/2022nd 05/22/2023. There are scattered areas of fibroglandular density. There is no suspicious abnormality in either breast. There are no significant changes from the prior study. Impression: There is no mammographic evidence of malignancy. Annual screening mammography is recommended. OVERALL FINAL ASSESSMENT: BI-RADS CATEGORY 1: Negative. us Self Screening Mammogram IMG MAMMO PROCEDURES Fi nal Result * Urine culture Urine, clean voided (04/30/2024 6:40 PM TAILINGS WORKER) Report Final Report: Less than 100,000 colonies/mL (clinically insignificant growth based on current clinical standards) Organism (CLINICALLY INSIGNIFICANT GROWTH [facility] Urine, clean voided 04/30/2024 6:40 PM TAILINGS WORKER 04/30/2024 6:59 PM TAILINGS WORKER Narrative [facility] - 05/02/2024 6:34 AM TAILINGS WORKER Testing performed by [facility] ([phone]) us Maggie Omalley NP LAB MICROBIOLOGY - GENERAL O RDERABLES Final Result [facility] Department [place] [address] * (ABNORMAL) POCT urinalysis dipstick (04/30/2024 3:41 PM TAILINGS WORKER) Pathologist [facility] Color, Urine, POC Yellow Clarity, ur, POC Clear Clear Glucose, ur, POC Negative Negative MG/DL Bilirubin, ur, POC Negative Negative, Small, Moderate, Large Ketones, ur, POC Negative Negative Specific [place], POC 1.030 1.003 - 1.030 Blood, ur, POC Trace(A) Negative pH, ur, POC 7.0 5.0 - 8.0 Protein, ur, POC 30.(A) Negative Urobilinogen, urine, POC 0.2 0.2 - 1.0 mg/dL Nitrite, ur, POC Negative Negative Leukocytes, ur, POC Small(A) Negative Lot Number xxx Urine 04/30/2024 3:41 PM TAILINGS WORKER us Maggie Omalley NP POINT OF CARE TEST ORDERABLE S Final Result * Vaginitis panel Vaginal (04/16/2024 9:00 PM CDT) [facility] Julianna DNA probe Not Detected Not Detected Gardnerella DNA probe Not Detected Not Detected [facility] Trichomonas DNA probe Not Detected Not Detected [facility] Comment: Interpretive Data Testing performed by [facility] via Affirm VPIII Microbial Identification Test, a DNA probe test for use in the detection and identification of Julianna species, Gardnerella vaginalis and Trichomonas vaginalis nucleic acid in vaginal fluid specimens from patients with symptoms of vaginitis/vaginosis. Negative results for these tests suggest the patient does not have candidiasis, bacterial vaginosis and/or trichomoniasis when consistent with clinical signs and symptoms. Current interpretive data was last revised on 2020. Vaginal 04/16/2024 9:00 PM CDT 04/16/2024 9:43 PM CDT Maggie Omalley NP LAB MICROBIOLOGY - GENERAL O RDERABLES Final Result [facility] [address] Department [place] [address] * Urine culture Urine, clean voided (04/16/2024 12:26 PM CDT) Report Final Report: Less than 100,000 colonies/mL (clinically insignificant growth based on current clinical standards) Organism (CLINICALLY INSIGNIFICANT GROWTH [facility] Urine, clean voided 04/16/2024 12:26 PM CDT 04/16/2024 1:32 PM CDT Narrative [facility] - 04/17/2024 2:49 PM CDT Testing performed by [facility] ([phone]) us Maggie Omalley NP LAB MICROBIOLOGY - GENERAL O RDERABLES Final Result [facility] Department [place] [address] * Pap and High Risk HPV and Genotyping (Cytology Component) (04/16/2024 10:46 AM CDT) Pap test 04/16/2024 10:4 6 AM CDT 04/16/2024 10:46 AM CDT Narrative 04/18/2024 4:20 PM CDT [facility] Department of Pathology [address] [place] [id number] Final Report with Addendum Note to Patients: This report may contain a detailed description of human tissue sent by a health care provider to the laboratory for pathologic evaluation. The content of this report is essential for diagnosis and may provide important critical findings. This information may be unfamiliar to patients to review without a medical professional present. It is advised that the patient review this report in the presence of a health care provider who can answer questions and explain the details. Patient Name: ??REINIER SALAZAR Address: ??[address] [place] [address], ?? [place], [place] ?? Gender: ??F : ??1975 (Age: 49) Service: ?? Location: ?? Hospital #: ??[id number] Patient Type: ?? SPECIMEN Taken: ??04/16/2024 Received: ??04/16/2024 Accessioned:: ??04/17/2024 Reported: ??04/18/2024 Physician(s): Maggie Omalley, RN, MECHANICAL SUPERVISOR Maggie Omalley RN, MECHANICAL SUPERVISOR Diagnosis: SOURCE OF SPECIMEN ? SCREENING THIN PREP IMAGED PAP w/ HPV: STATEMENT OF ADEQUACY ?- Satisfactory for evaluation; endocervical/transformation zone component present ? GENERAL CATEGORIZATION: ?- Negative for intraepithelial lesion or malignancy ? CINDY Vazquez(ASCP)CINDY Crabtree(ASCP) Report Electronically Reviewed and Signed Out By ??CINDY Crabtree(ASCP) ??04/18/2024 16:20:20Addenda: HPV Test Interpretation (Normal-Negative for High Risk HPV) HPV HR 16- Not detected HPV HR 18-Not detected HPV HR non 16/18- Not detected Interpretive Data Nucleic acid amplification for detection of high-risk Human Papilloma virus (HPV) is performed by the [employer] 6800 HPV test. This assay specifically detects HPV- 16 and HPV-18 genotypes. The following HPV genotypes are detected as high-risk HPV: HPV-31, 33, 35, 39, 45, 51, 52, 56, 58, 59, 66, and 68. This assay has been approved by the [place] Food and Drug Administration for detection of HPV in cervical specimens collected by a physician using an endocervical brush/spatula or cervical broom and placed in the ThinPrep Pap Test PreservCyt collection containers. The performance characteristics of this test have been verified by the [facility]. Correlate with reported cytology results, as applicable. Interpretive data last revised 22 CINDY Vazquez(ASCP)Report Electronically Reviewed and Signed Out By ??CINDY Vazquez(ASCP) ??04/18/2024 09:33:02 ?? Specimen(s) Received: A: SCREENING THIN PREP IMAGED PAP w/ HPV Clinical History: Last Menstrual Period: 03/30 Menstrual History: Previous history of positive HPV: 2022 HPV 18 Clinical History: 2022 low grade on bx The Pap test is a screening test used to aid in the detection of cervical cancer and its precursors. ??It should not be the sole means by which malignant and premalignant lesions are diagnosed. ??Both false negative and false positive results may occur. ?? It also has poor sensitivity for the detection of endometrial lesions and should not be used to evaluate suspected endometrial abnormalities. ??For these reasons it is most important to obtain Pap tests at regular intervals. The performance characteristics of some immunohistochemical stains, fluorescence in-situ hybridization tests and immunophenotyping by flow cytometry cited in this report (if any) were determined by the Surgical Pathology Department at [facility] as part of an ongoing chief vendor quality program and in compliance with federally mandated regulations drawn from the Clinical Laboratory Improvement Act of 1988 (CLIA '88). ??Some of these tests rely on the use of analyte specific reagents and are subject to specific labeling requirements by the US Food and Drug Administration. ??Such diagnostic tests may only be performed in a facility that is certified by the Department of Health and Human Services as a high complexity laboratory under CLIA '88. The FDA has determined that such clearance or approval is not necessary. ??This test is used for clinical purposes. ??It should not be regarded as investigational or for research. ??Nevertheless, federal rules concerning the medical use of analyte specific reagents require that the following disclaimer be attached to the report: This test was developed and its performance characteristics determined by the Surgical Pathology Department [facility]. ??It has not been cleared or approved by the U. S. Food and Drug Administration. us Maggie Omalley MECHANICAL SUPERVISOR LAB CYTOLOGY ORDERABLES Heather france Result * High Risk HPV DNA Detection with Genotyping (Molecular component) (04/16/2024 8:35 AM CDT) HPV HR 16 Not Detected Not Detected [facility] Comment:Testing performed by : [facility], [address] [place]., [address] HPV HR 18 Not Detected Not Detected [facility] Comment:Testing performed by : [facility], [address] [place]., [address] HPV HR Non 16/18 Not Detected Not Detected [facility] Comment: Interpretive Data Nucleic acid amplification for detection of high-risk Human Papilloma virus (HPV) is performed by the [employer] 6800 HPV test. ??This assay specifically detects HPV-16 and HPV-18 genotypes. ??The following HPV genotypes are detected as high-risk HPV: ?? HPV-31, 33, 35, ,39, 45, 51, 52, 56, 58, 59, 66, and 68. ??This assay has been approved by the [place] Food and Drug Administration for detection of HPV in cervical specimens collected by a physician using an endocervical brush/spatula or cervical broom and placed in the ThinPrep Pap Test PreservCyt collection containers. ??The performance characteristics of this test have been verified by the [facility] laboratory. Correlate with separately reported cytology results, as applicable. Interpretive data last revised 22 Testing performed by: [facility], [address] [place]., [address] Endocervical 04/16/2024 8:35 AM CDT 04/17/2024 12:45 PM CDT Narrative [facility] - 04/18/2024 3:11 AM CDT Clinical history and diagnosis->hx of hpv 18 ??low grade on bx 2022 Number of vials->1 Testing type->Screening Last menstrual period (date if known)->03/30 Previous positive HPV history?->Yes Date of positive HPV->2022 us Maggie Omalley MECHANICAL SUPERVISOR LAB BODY FLUIDS AND STOOLS O RDERABLES Final Result [facility] [address] [facility] Department [place] [address] [facility] * (ABNORMAL) POCT urinalysis dipstick (04/16/2024 8:12 AM CDT) Color, Urine, POC Yellow Clarity, ur, POC Cloudy(A) Clear Glucose, ur, POC Negative Negative MG/DL Bilirubin, ur, POC Negative Negative, Small, Moderate, Large Ketones, ur, POC Negative Negative Specific [place], POC 1.020 1.003 - 1.030 Blood, ur, POC Hemolyzed, trace(A) Negative pH, ur, POC 7.0 5.0 - 8.0 Protein, ur, POC Negative Negative Urobilinogen, urine, POC 0.2 0.2 - 1.0 mg/dL Nitrite, ur, POC Negative Negative Leukocytes, ur, POC Large(A) Negative Lot Number [id number] Urine 04/16/2024 8:12 AM CDT us Maggie Omalley NP POINT OF CARE TEST ORDERABLE S Final Result * COLONOSCOPY (07/06/2021 10:41 AM TAILINGS WORKER) Anatomical Region Laterality Modality Other Narrative Procedure Note Terrell Solis MD - 07/06/2021 10:41 AM CST [facility] Patient Name: Reinier Salazar Procedure Date: 07/06/2021 10:41 AM Date of : 1975 Admit Type: Outpatient Age: 46 Gender: Female Attending MD: Terrell Solis M.D. Room: [facility] ENDOSCOPY ROOM 02 Note Status: Finalized Procedure: Colonoscopy Indications: Screening for colorectal malignant neoplasm, Thisis the patient's first colonoscopy Referring MD: Goldie Brewster M.D. Providers: Terrell Solis M.D. Medicines: Monitored Anesthesia Care Complications: No immediate complications. Estimated Blood Loss: Estimated blood loss was minimal. Procedure: Pre-Anesthesia Assessment: - Immediately prior to administration ofmedications, the patient was re-assessed for adequacy to receive sedatives. The benefits, risks and alternatives of theprocedure and sedation were discussed and informed consentwas obtained. All questions were answered. Please referto the signed informed consent document in the medical record. The scope was passed under direct vision.The [id number] Colonoscope was introducedthrough the anus and advanced to the terminal ileum. The colonoscopy was performed without difficulty. The patient tolerated the procedure well. The qualityof the bowel preparation was evaluated using the BBPS ([place] Bowel Preparation Scale) with scores of:Right Colon = 3, Transverse Colon = 3 and Left Colon = 3 (entire mucosa seen well with no residual staining, small fragments of stool or opaque liquid). Thetotal BBPS score equals 9. The bowel preparation used was polyethylene glycol (PEG) via split doseinstruction. Findings: The terminal ileum appeared normal. A 6 mm polyp was found in the ascending colon. The polyp was sessile. The polyp was removed with a jumbo cold forceps. Resection andretrieval were complete. Two sessile polyps were found in the recto-sigmoid colon. The polyps were small in size. These polyps were removed with a jumbo coldforceps. Resection and retrieval were complete. Non-bleeding internal hemorrhoids were found during retroflexion. The hemorrhoids were mild. Impression: - The examined portion of the ileum was normal. - One 6 mm polyp in the ascending colon, removedwith a jumbo cold forceps. Resected and retrieved. - Two small polyps at the recto-sigmoid colon,removed with a jumbo cold forceps. Resected andretrieved. - Non-bleeding internal hemorrhoids. Recommendation: - Discharge patient to home (ambulatory). - Patient has a contact number available for emergencies. The signs and symptoms of potential delayed complications were discussed with thepatient. Return to normal activities tomorrow. Written discharge instructions were provided to thepatient. - Await pathology results. - Repeat colonoscopy in 5-7 years for surveillance based on pathology. - Return to referring physician as previously scheduled. - If you have issues please call [facility] ([facility]) at [phone]. If it is after hours, please call [phone] and ask for the GI fellow roofing contractor. Attending Participation: I personally performed the entire procedure. Electronically by Terrell Solis M.D. Terrell Solis M.D. 07/06/2021 11:36:26 AM . Number of Addenda: 0 Note Initiated On: 07/06/2021 10:41 AM Recognized by the [place] [employer] for promoting quality in endoscopy us Terrell Solis MD ENDOSCOPY PROCEDURES Heather l Result from Last 3 Months or Most Recently Relevant to Health Maintenance Insurance [employer] IBEW CIGDAVID RIVERA Advance Directives For more information, please contact: [phone] * Full Code (Latest Code Status on File) Date Activated Date Inactivated Comments 07/06/2021 10:49 AM 07/06/2021 4:27 PM Care Teams Joiners Supervisor Relationship Specialty Start Date End Date Antonio Varghese DO [address] [place] [address] [place] [address] PCP - General Family Medicine 03/26/23
--- OUTSIDE RECORDS SUMMARY | 2024-07-10 08:50 | XMS_ITS | Referral Summary ---
Author Organization [facility] Address [address] [place] [address] Care Team Providers Care Charter Bus Driver Name Role Phone Abimael Antonio MORRIS Primary Care Provider [phone] Encounters Date Type Department Care Team Description 06/20/2024 E-Visit [facility] [address] [place] [phone] Maggie Omalley, SLATE SPLITTER Your Medications 06/02/2024 12:38 PM LICENSED SALES ASSISTANT - 06/02/2024 11:59 PM LICENSED SALES ASSISTANT Hospital Encounter [address] [place] [address] Screening mammogram, encounter for Discharge Disposition: Discharge to home or self care 04/30/2024 3:42 PM LICENSED SALES ASSISTANT - 04/30/2024 11:59 PM LICENSED SALES ASSISTANT Hospital Encounter [address] [address] Pelvic and perineal pain Discharge Disposition: Discharge to home or self care 04/30/2024 9:00 AM LICENSED SALES ASSISTANT Clinical Support [facility] [address] [place] [phone] Pelvic and perineal pain (Primary Dx) 04/16/2024 8:35 AM CDT - 04/16/2024 11:59 PM CDT Hospital Encounter [address] [address] Cervical cancer screening Discharge Disposition: Discharge to home or self care 04/16/2024 Orders Only [facility] [address] [place] [phone] Maggie Omalley, SLATE SPLITTER 04/16/2024 9:16 PM CDT - 04/16/2024 11:59 PM CDT Hospital Encounter [facility] [address] [place] [address] Vaginal discharge Discharge Disposition: Discharge to home or self care 04/16/2024 9:05 AM CDT - 04/16/2024 11:59 PM CDT Hospital Encounter [facility] [address] [place] [address] Pelvic and perineal pain Discharge Disposition: Discharge to home or self care 04/16/2024 7:45 AM CDT Office Visit [facility] [address] [facility] [address] [place] [phone] Maggie Omalley, SLATE SPLITTER Encounter for gynecological examination (general) (routine) without abnormal findings (Primary Dx); Cervical cancer screening; Pelvic mass; Pelvic and perineal pain; Vaginal discharge from Last 3 Months Allergies No known active allergies Medications atorvastatin [...] Abnormal pap smear; Outcome: +HPV only Hyperlipidemia Immunizations Name Administration Dates Next Due HPV9 10/31/2023,07/03/2023,05/03/2023 Social History Tobacco Use Types Packs/Day Years [...] on file Legal Sex Female 9:13 PM LICENSED SALES ASSISTANT Gender Identity Female 03/06/2019 2:21 PM CDT Sexual Orientation Not on file 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 Not on file Not on fi le Last Filed Vital Signs Vital Sign Reading Time Taken Comments Blood Pressure 120/80 04/16/2024 7:47 AM CDT Pulse 73 07/06/2021 12:00 PM LICENSED SALES ASSISTANT Temperature 36 ??C (96.8 ??F) 07/06/2021 11:38 AM LICENSED SALES ASSISTANT Respiratory Rate 15 07/06/2021 12:00 PM LICENSED SALES ASSISTANT Oxygen Saturation 99% 07/06/2021 12:00 PM LICENSED SALES ASSISTANT Inhaled Oxygen Concentration - - Weight 90.7 kg (200 lb) 04/16/2024 7:47 AM CDT Height 157.5 cm (5' 2 ) 04/16/2024 7:47 AM CDT Body Mass Index 36.58 04/16/2024 7:47 AM CDT Plan of Treatment Not on file Procedures Procedure Name Priority Date/Time Associated Diagnosis Comments SCREENING MAMMOGRAM BILATERAL W DWIGHT Schedule Routine, Read Routine (OP Routine) 06/02/2024 1:00 PM LICENSED SALES ASSISTANT Screening mammogram, encounter for URINE CULTURE Routine 04/30/2024 6:40 PM LICENSED SALES ASSISTANT Pelvic and perineal pain POCT URINALYSIS DIPSTICK Routine 04/30/2024 3:41 PM LICENSED SALES ASSISTANT Pelvic and perineal pain VAGINITIS PANEL Routine [...] and perineal pain COLONOSCOPY 07/06/2021 10:41 AM LICENSED SALES ASSISTANT from Last 3 Months or Most Recently Relevant to Health Maintenance Results * Screening Mammogram Bilateral W Dwight (06/02/2024 1:00 PM LICENSED SALES ASSISTANT) Anatomical Region Laterality Modality Breast Bilateral Mammography Narrative 06/02/2024 5:00 PM LICENSED SALES ASSISTANT Mammogram Technique: Bilateral Digital Breast Tomosynthesis, Bilateral C-view 2D Screening mammogram. ??Views obtained: ??bilateral craniocaudal and bilateral mediolateral oblique. ??Computer Aided Detection was performed. Mammogram Findings: The present examination has been compared to prior imaging studies performed at [facility] on 11/19/2014, 12/22/2015, 12/22/2016, 12/24/2017, 03/08/2020, [...] to prior imaging studies performed at [facility] on 11/19/2014, 12/22/2015, 12/22/2016, 12/24/2017, 03/08/2020, [...] culture Urine, clean voided (04/30/2024 6:40 PM LICENSED SALES ASSISTANT) Report Final Report: Less than 100,000 colonies/mL (clinically insignificant growth based on current clinical standards) Organism (CLINICALLY INSIGNIFICANT GROWTH [facility] Urine, clean voided 04/30/2024 6:40 PM LICENSED SALES ASSISTANT 04/30/2024 6:59 PM LICENSED SALES ASSISTANT Narrative MARU TANGH - 05/02/2024 6:34 AM LICENSED SALES ASSISTANT Testing performed by [facility] Microbiology Laboratory ([phone]) us Maggie Omalley NP LAB MICROBIOLOGY - GENERAL O RDERABLES Final Result [facility] Department [place] [address] * (ABNORMAL) POCT urinalysis dipstick (04/30/2024 3:41 PM LICENSED SALES ASSISTANT) Pathologist [facility] Color, Urine, POC Yellow Clarity, ur, POC Clear Clear Glucose, ur, POC Negative Negative MG/DL Bilirubin, ur, POC Negative Negative, Small, Moderate, Large Ketones, ur, POC Negative Negative Specific [place], POC 1.030 1.003 - 1.030 Blood, ur, POC Trace(A) Negative pH, ur, POC 7.0 5.0 - 8.0 Protein, ur, POC 30.(A) Negative Urobilinogen, urine, POC 0.2 0.2 - 1.0 mg/dL Nitrite, ur, POC Negative Negative Leukocytes, ur, POC Small(A) Negative Lot Number [id number] Urine 04/30/2024 3:41 PM LICENSED SALES ASSISTANT us Maggie Omalley NP POINT OF CARE TEST ORDERABLE S Final Result * Vaginitis panel Vaginal (04/16/2024 9:00 PM CDT) [facility] Julianna DNA probe Not Detected Not Detected Gardnerella DNA probe Not Detected Not Detected [facility] Trichomonas DNA probe Not Detected Not Detected [facility] Comment: Interpretive Data Testing performed by [facility] via Affirm VPIII Microbial Identification Test, a [...] MICROBIOLOGY - GENERAL O RDERABLES Final Result [facility] [address] Department [place] [address] * Urine culture Urine, clean voided (04/16/2024 12:26 PM CDT) Report Final Report: Less than 100,000 colonies/mL (clinically insignificant growth based on current clinical standards) Organism (CLINICALLY INSIGNIFICANT GROWTH [facility] Urine, clean voided 04/16/2024 12:26 PM CDT 04/16/2024 1:32 PM CDT Narrative [facility]U TANG - 04/17/2024 2:49 PM CDT Testing performed by [facility] Microbiology Laboratory ([phone]) Maggie Omalley NP LAB MICROBIOLOGY - GENERAL O RDERABLES Final Result Performing Organization Address [facility] Co de Phone Number [facility] Department [place] [address] * Pap and High Risk HPV and Genotyping (Cytology Component) (04/16/2024 10:46 AM CDT) Pap test 04/16/2024 10:4 6 AM CDT 04/16/2024 10:46 AM CDT Narrative 04/18/2024 4:20 PM CDT [facility] Department of Pathology [address] [place] [id number] Final Report with Addendum Note to [...] and explain the details. Patient Name: ??REINIER MELO Address: ??[address], ?? [place], [place] [address] Gender: ??F : ??1975 (Age: 49) Service: ?? Location: ?? Hospital #: ??[id number] Patient Type: ?? SPECIMEN Taken: ??04/16/2024 Received: ??04/16/2024 Accessioned:: ??04/17/2024 Reported: ??04/18/2024 Physician(s): Maggie Omalley, RN, SLATE SPLITTER Maggie Omalley RN, SLATE SPLITTER Diagnosis: SOURCE OF SPECIMEN ? SCREENING THIN PREP IMAGED PAP w/ HPV: STATEMENT OF ADEQUACY ?- Satisfactory for evaluation; endocervical/transformation zone component present ? GENERAL CATEGORIZATION: ?- Negative for intraepithelial lesion or malignancy ? Marie Moses CT(ASCP)Jonelle Smiley CT(ASCP) Report Electronically Reviewed and Signed Out By [...] this test have been verified by the [facility] Molecular Infectious Disease laboratory. Correlate with reported [...] determined by the Surgical Pathology Department at [facility] as part of an ongoing air quality specialist program and in compliance with federally mandated [...] characteristics determined by the Surgical Pathology Department [facility]. ??It has not been cleared or approved by the U. S. Food and Drug Administration. Maggie Omalley NP LAB CYTOLOGY ORDERABLES Heather france Result * High Risk HPV DNA Detection with Genotyping (Molecular component) (04/16/2024 8:35 AM CDT) HPV HR 16 Not Detected Not Detected [facility] Comment:Testing performed by : [facility], [address] [place]., [address] HPV HR 18 Not Detected Not Detected [facility] Comment:Testing performed by : [facility], [address] [place]., [address] HPV HR Non 16/18 Not Detected Not Detected [facility] Comment: Interpretive Data Nucleic acid amplification for [...] this test have been verified by the [facility] Molecular Infectious Disease laboratory. Correlate with separately reported cytology results, as applicable. Interpretive data last revised 22 Testing performed by: [facility], [address] [place]., [address] Endocervical 04/16/2024 8:35 AM CDT 04/17/2024 12:45 PM CDT Narrative MARU - 04/18/2024 3:11 AM CDT Clinical history and diagnosis->hx of hpv 18 ??low grade on bx 2022 Number of vials->1 Testing type->Screening Last menstrual period (date if known)->03/30 Previous positive HPV history?->Yes Date of positive HPV->2022 Maggie Omalley NP LAB BODY FLUIDS AND STOOLS O RDERABLES Final Result [facility] [address] Department [place] [address] [facility] * (ABNORMAL) POCT urinalysis dipstick (04/16/2024 8:12 AM CDT) Color, Urine, POC Yellow Clarity, ur, POC Cloudy(A) Clear Glucose, ur, POC Negative Negative MG/DL Bilirubin, ur, POC Negative Negative, Small, Moderate, Large Ketones, ur, POC Negative Negative Specific [place], POC 1.020 1.003 - 1.030 Blood, ur, POC Hemolyzed, trace(A) Negative pH, ur, POC 7.0 5.0 - 8.0 Protein, ur, POC Negative Negative Urobilinogen, urine, POC 0.2 0.2 - 1.0 mg/dL Nitrite, ur, POC Negative Negative Leukocytes, ur, POC Large(A) Negative Lot Number [id number] Urine 04/16/2024 8:12 AM CDT Maggie Omalley NP POINT OF CARE TEST ORDERABLE S Final Result * COLONOSCOPY (07/06/2021 10:41 AM LICENSED SALES ASSISTANT) Anatomical Region Laterality Modality Other Narrative Procedure Note Terrell Solis MD - 07/06/2021 10:41 AM CST [facility] Patient Name: Reinier Melo Procedure Date: 07/06/2021 10:41 AM Date of : 1975 Admit Type: Outpatient Age: 46 Gender: Female Attending MD: Terrell Solis M.D. Room: [facility] ENDOSCOPY ROOM 02 Note Status: Finalized [...] The scope was passed under direct vision.The [id number] Colonoscope was introducedthrough the anus and advanced to the terminal ileum. The colonoscopy was performed without difficulty. The patient tolerated the procedure well. The qualityof the bowel preparation was evaluated using the BBPS (Shirley Bowel Preparation Scale) with scores of:Right Colon [...] - If you have issues please call [facility]a (BEENA) at [phone]. If it is after hours, please call [phone] and ask for the GI fellow category consultant. Attending Participation: I personally performed the entire procedure. Electronically by Terrell Solis M.D. Terrell Solis M.D. 07/06/2021 11:36:26 AM . Number of Addenda: 0 Note Initiated On: 07/06/2021 10:41 AM Recognized by the [place] [employer] for promoting quality in endoscopy Terrell Solis MD ENDOSCOPY PROCEDURES Heather l Result from Last 3 Months or Most Recently Relevant to Health Maintenance Insurance SAURABH RIVERA CIGDAVID IBEW Advance Directives For more information, please contact: [phone] * Full Code (Latest Code Status on File) Date Activated Date Inactivated Comments 07/06/2021 10:49 AM 07/06/2021 4:27 PM Care Teams Charter Bus Driver Relationship Specialty Start Date End Date Antonio Varghese DO [address] [place] [address] [address] PCP - General Family Medicine 03/26/23
--- OUTSIDE RECORDS SUMMARY | 2024-07-10 08:50 | XMS_ITS | Clinical Summary ---
Author Organization [facility] Address [address] [place] [address] Care Team Providers Care Formula Maker Name Role Phone Unavailable Primary Care Provider Unavailabl e Source Comments [facility] [employer],non-owned Affiliates and Associated Physician Practices is amultiple site organization consisting of ambulatory clinics and hospital sitesin [place], [place], [place] and [place]. This disclosure is being madepursuant to the Care Everywhere program and may not contain all information available regarding this patient. Last updated 18.[facility] [employer] Allergies No known active allergies Medications * Be aware that medications may not be up to date on this document. Alwaysverify current medications with the patient. Medication Sig Dispensed Refills Start Date End Date Status ciprofloxacin 0.3% (CILOXAN) 0.3 % ophthalmic solution Instill 1 Drop into right eye every 4 hours while awake. 2.5 mL 0 09/06/2010 Active Social History Tobacco Use Types Packs/Day Years Used Date Smoking Tobacco: Never Assessed Sex and Gender Information Value Date Recorded Sex Assigned at Not on file Gender Identity Not on file Sexual Orientation Not on file Plan of Treatment Health Maintenance Due Date Last Done Comments COLOGUARD (AGES 45-75) - COL ON CA SCREENING 1975 COLON MONITORING 1975 COLONOSCOPY - COLON CA SCREENING 1975 CT COLONOGRAPHY - COLON CA SCREENING 1975 Colorectal Cancer Screening 1975 FIT - COLON CA SCREENING 1975 FLEX SIG - COLON CA SCREENING 1975 MAMMOGRAM 1975 PAP SMEAR 1975 HIV SCREENING 1990 HEPATITIS C SCREENING 04/03/1993 DTAP/TDAP/TD VACCINES (1 - Tdap) 1994 HEPATITIS B VACCINE (1 of 3 - 19+ 3-dose series) 1994 LIPID TESTING 02/24/2014 02/24/2009 COVID-19 VACCINE (2023-2 5 season) 2024 INFLUENZA VACCINE (#1) 2024 DEPRESSION SCREENING 06/18/2024 ZOSTER VACCINE (1 of 2) 2025 HIB VACCINE Aged Out No longer eligi ble based on patient's age to complete this topic HPV VACCINE Aged Out No longer eligi ble based on patient's age to complete this topic MENINGOCOCCAL (Group B) VACCINE Aged Out No longer eligible based on patient's age to complete this topic MENINGOCOCCAL VACCINE Aged Out No lory vishal eligible based on patient's age to complete this topic PNEUMOCOCCAL VACCINE Aged Out No long er eligible based on patient's age to complete this topic Procedures Procedure Name Priority Date/Time Associated Diagnosis Comments LIPID PROFILE 02/24/2009 10:41 AM CDT from Last 3 Months or Most Recently Relevant to Health Maintenance Results * (ABNORMAL) LIPID PROFILE (02/24/2009 10:41 AM CDT) Cholesterol 211(H) 125 - 200 mg/dL [facility] Comment: Test Performed at: [facility] [address] [place], [place] ??[phone] TIRSO CORTES MD HDL Cholesterol 61 > OR = 40 mg/dL [facility] Triglycerides 72 <150 mg/dL [facility] LDL Calculated 136(H) <130 mg/dL (calc) [facility] Comment: DESIRABLE RANGE <100 MG/DL FOR PATIENTS WITH CHD OR DIABETES AND <70 MG/DL FOR DIABETIC PATIENTS WITH KNOWN HEART DISEASE. CHOL/HDLC RATIO 3.5 < OR = 5.0 (calc) [facility] 02/24/2009 10:4 1 AM CDT 02/24/2009 10:42 AM CDT Dorian Carpenter MD LAB - CHEMISTRY CHANTELLE CELAYA [facility] Organization Address City/State/ZIP Co de Phone Number [facility] [address] [place] [address] from Last 3 Months or Most Recently Relevant to Health Maintenance
--- OUTSIDE RECORDS SUMMARY | 2024-07-10 08:50 | XMS_ITS | Referral Summary ---
Author Organization [facility] Address [address] [place] [address] Care Team Providers Care Pattern Fitter Name Role Phone Unavailable Primary Care Provider Unavailabl e Source Comments [facility] [employer],non-owned Affiliates and Associated Physician Practices is amultiple site organization consisting of ambulatory clinics and hospital sitesin [place], [place], [place] and [place]. This disclosure is being madepursuant to the Care Everywhere program and may not contain all information available regarding this patient. Last updated 18.[facility] [employer] Allergies No known active allergies Medications * [...] Orientation Not on file Plan of Treatment Not on file Procedures Procedure Name Priority Date/Time Associated Diagnosis Comments LIPID PROFILE 02/24/2009 10:41 AM CDT from Last 3 Months or Most Recently Relevant to Health Maintenance Results * (ABNORMAL) LIPID PROFILE (02/24/2009 10:41 AM CDT) Cholesterol 211(H) 125 - 200 mg/dL [facility] Comment: Test Performed at: [facility] [address] [place], [place] ??[phone] TIRSO CORTES MD HDL Cholesterol 61 > [...] Carpenter MD LAB - CHEMISTRY CHANTELLE CELAYA [facility] Organization Address City/State/ZIP Co de Phone Number [facility] [address] [place] [address] from Last 3 Months or Most Recently Relevant to Health Maintenance
--- OUTSIDE RECORDS SUMMARY | 2024-07-10 08:50 | XMS_ITS | Patient Health Summary ---
Author Organization [facility] Address [address] [place] [address] Care Team Providers Care Direct Service Provider Name Role Phone Unavailable Primary Care Provider Unavailabl e Note from [facility],non-owned Affiliates and Associated Physician Practices is amultiple site organization consisting of ambulatory clinics and hospital sitesin [place], [place], [place] and [place]. This disclosure is being madepursuant to the Care Everywhere program and may not contain all information available regarding this patient. Last updated 18.[facility] Allergies No known active allergies Medications * Be aware that medications may not be up to date on this document. Alwaysverify current medications with the patient. * ciprofloxacin 0.3% (CILOXAN) 0.3 % ophthalmic solution(Started 09/06/2010) Instill 1 Drop into right eye every 4 hours while awake. Social History Tobacco Use Types Packs/Day Years Used Date Smoking Tobacco: Never Assessed Sex and Gender Information Value Date Recorded Sex Assigned at Not on file Gender Identity Not on file Sexual Orientation Not on file Procedures * CBC W AUTO DIFFERENTIAL W PLATELETS(Performed 02/24/2009) * COMPREHENSIVE METABOLIC PANEL(Performed 02/24/2009) * LIPID PROFILE(Performed 02/24/2009) Results * CBC W AUTO DIFFERENTIAL W PLATELETS (02/24/2009 10:41 AM CDT) White Blood Cell Count 4.8 3.8 - 10.8 Thousand/u L [facility] RBC 4.26 4.20 - 5.80 Million/uL [facility] Hemoglobin 13.9 13.2 - 17.1 g/dL [facility] Hematocrit 41.4 38.5 - 50.0 % [facility] MCV 97.1 80.0 - 100.0 fL [facility] MCH 32.6 27.0 - 33.0 pg [facility] MCHC 33.6 32.0 - 36.0 g/dL [facility] RDW 13.0 11.0 - 15.0 % [facility] Platelet Count 234 140 - 400 Thousand/u L [facility] Comment: REPORT COMMENT: FASTING Test Performed at: [facility] [address] [place], [place] ??[phone] TIRSO CORTES MD 02/24/2009 10:4 1 AM CDT 02/24/2009 10:42 AM CDT Dorian Carpenter MD LAB - HEMATOLOGY ORD ERABLES [facility] [address] [place] [address] * COMPREHENSIVE METABOLIC PANEL (02/24/2009 10:41 AM CDT) Glucose 86 65 - 99 mg/dL [facility] Comment:FASTING REFERENCE IN TERVAL BUN 11 7 - 25 mg/dL [facility] Creatinine 0.87 0.79 - 1.33 mg/dL [facility] eGFR by MDRD >60 > OR = 60 mL/min/1. 73m2 [facility] eGFR by MDRD >60 > OR = 60 mL/min/1. 73m2 [facility] BUN/Creatinine Ratio NOT APPLICABLE 6 - 22 (calc) [facility] Comment: BUN/CREATININE RATIO IS NOT REPORTED WHEN THE BUN AND CREATININE VALUES ARE WITHIN NORMAL LIMITS. Sodium 138 135 - 146 mmol/L [facility] Potassium 4.5 3.5 - 5.3 mmol/L [facility] Chloride 104 98 - 110 mmol/L [facility] CO2 26 21 - 33 mmol/L [facility] Calcium 9.4 8.6 - 10.2 mg/dL [facility] Protein Total 7.2 6.2 - 8.3 g/dL [facility] Albumin 4.4 3.6 - 5.1 g/dL [facility] Globulin Total 2.8 2.1 - 3.7 g/dL (calc) [facility] Albumin/Globuli n Ratio 1.6 1.0 - 2.1 (calc) [facility] Bilirubin Total 0.4 0.2 - 1.2 mg/dL [facility] Alkaline Phosphatase 61 40 - 115 U/L [facility] AST 22 10 - 40 U/L [facility] ALT 23 9 - 60 U/L [facility] Comment: Test Performed at: [facility] [address] [place], [place] ??[phone] TIRSO CORTES MD 02/24/2009 10:4 1 AM CDT 02/24/2009 10:42 AM CDT Dorian Carpenter MD LAB - CHEMISTRY CHANTELLE CELAYA Performing Organization Address [facility] de Phone Number [facility] [address] [place] [phone] * (ABNORMAL) LIPID PROFILE (02/24/2009 10:41 AM CDT) Cholesterol 211(H) 125 - 200 mg/dL [facility] Comment: Test Performed at: [facility] [address] [place], [place] ??[phone] TIRSO CORTES MD HDL Cholesterol 61 > [...] Carpenter MD LAB - CHEMISTRY CHANTELLE CELAYA Performing Organization Address [facility] Co de Phone Number [facility] [address] [place] [address]
== END 2024-07-05 14:21 | disposition home or self-care (01) ==
PROVIDERS: Emergency Medicine; Emergency Provider Preventive Medicine Aerospace Medicine; PCP Family Medicine
DX: R07.89 Other chest pain (principal); I10 Essential (primary) hypertension; E78.49 Other hyperlipidemia
CPT/HCPCS: 36415; 71046; 80053; 83690; 84484; 85025; 85610; 85730; 93005; 99284; A9270

== ENCOUNTER 2024-08-01 09:10 | Outpatient (CLI) | payer OTHER, SELFPAY ==
--- OUTSIDE RECORDS SUMMARY | 2024-08-01 09:14 | XMS_ITS | Clinical Summary ---
Author Organization [facility] Address [address] [place] [address] Care Team Providers Care Avid Editor Name Role Phone Antonio Varghese Primary Care Provider [phone] Allergies No known active allergies Medications atorvastatin [...] Additional Information Patient not taking.Reported on 03/22/2022 hydroCHLOROthia zide (HYDRODIURIL) 25 mg tablet Take 1 tablet (25 mg total) by mouth daily Active clotrimazole-be tamethasone (LOTRISONE) creamIndication s:Yeast infection of the skin Apply topically 2 [...] (twelve) hours 180 tablet 1 4 Active Hospital, Clinic, or Other Facility Administered Medication [...] Type Department Care Team Description 06/20/2024 E-Visit [facility] [address] [place] [address] Maggie Omalley, FINANCIAL INVESTMENT MANAGER Your Medications 06/02/2024 12:38 PM BACTERIOLOGY PROFESSOR - 06/02/2024 11:59 PM BACTERIOLOGY PROFESSOR Hospital Encounter [facility] [address] [place] [address] Screening mammogram, encounter for Discharge Disposition: Discharge to home or self care from Last 3 Months Immunizations Name Administration [...] on file Legal Sex Female 9:13 PM BACTERIOLOGY PROFESSOR Gender Identity Female 03/06/2019 2:21 PM CDT [...] AM CDT Pulse 73 07/06/2021 12:00 PM BACTERIOLOGY PROFESSOR Temperature 36 C (96.8 F) 07/06/2021 11:38 AM BACTERIOLOGY PROFESSOR Respiratory Rate 15 07/06/2021 12:00 PM BACTERIOLOGY PROFESSOR Oxygen Saturation 99% 07/06/2021 12:00 PM BACTERIOLOGY PROFESSOR Inhaled Oxygen Concentration - - Weight 90.7 [...] Read Routine (OP Routine) 06/02/2024 1:00 PM BACTERIOLOGY PROFESSOR Screening mammogram, encounter for HIGH RISK HPV DNA DETECTION WITH GENOTYPING Routine 04/16/2024 8:35 AM CDT Cervical cancer screening COLONOSCOPY 07/06/2021 10:41 AM BACTERIOLOGY PROFESSOR from Last 3 Months or Most Recently Relevant to Health Maintenance Results * Screening Mammogram Bilateral W Dwight (06/02/2024 1:00 PM BACTERIOLOGY PROFESSOR) Anatomical Region Laterality Modality Breast Bilateral Mammography Narrative 06/02/2024 5:00 PM BACTERIOLOGY PROFESSOR Mammogram Technique: Bilateral Digital Breast Tomosynthesis, Bilateral C-view 2D Screening mammogram. Views obtained: bilateral craniocaudal and bilateral mediolateral oblique. Computer Aided Detection was performed. Mammogram Findings: The present examination has been compared to prior imaging studies performed at [facility] on 11/19/2014, 12/22/2015, 12/22/2016, 12/24/2017, 03/08/2020, 05/10/2021, 05/15/2022 and 05/22/2023. There are scattered areas of fibroglandular density. There is no suspicious abnormality in either breast. There are no significant changes from the prior study. Impression: There is no mammographic evidence of malignancy. Annual screening mammography is recommended. OVERALL FINAL ASSESSMENT: BI-RADS CATEGORY 1: Negative. Procedure Note Ruby Inman MD - 06/02/2024 Mammogram Technique: Bilateral Digital Breast Tomosynthesis, Bilateral C-view 2D Screening mammogram. Views obtained: bilateral craniocaudal and bilateral mediolateral oblique. Computer Aided Detection was performed. Mammogram Findings: The present examination has been compared to prior imaging studies performed at [facility] on 11/19/2014, 12/22/2015, 12/22/2016, 12/24/2017, 03/08/2020, 05/10/2021, [...] IMG MAMMO PROCEDURES Fi nal Result * High Risk HPV DNA Detection with Genotyping (Molecular component) (04/16/2024 8:35 AM CDT) HPV HR 16 Not Detected Not Detected [facility] Comment:Testing performed by : [facility], [address] [place]., [address] HPV HR 18 Not Detected Not Detected [facility] Comment:Testing performed by : [facility], [address] [place]., [address] HPV HR Non 16/18 Not Detected Not Detected [facility] Comment: Interpretive Data Nucleic acid amplification for detection of high-risk Human Papilloma virus (HPV) is performed by the Judit Cesar 6800 HPV test. This assay specifically detects HPV-16 and HPV-18 genotypes. The following HPV genotypes are detected as high-risk HPV: HPV-31, 33, 35, ,39, 45, 51, 52, [...] this test have been verified by the [facility] Molecular Infectious Disease laboratory. Correlate with separately reported cytology results, as applicable. Interpretive data last revised 22 Testing performed by: [facility], [address] [place]., [address] Endocervical 04/16/2024 8:35 AM CDT 04/17/2024 12:45 PM CDT Narrative [facility] - 04/18/2024 3:11 AM CDT Clinical history and diagnosis->hx of hpv 18 low grade on bx 2022 Number of vials->1 Testing type->Screening Last menstrual period (date if known)->03/30 Previous positive HPV history?->Yes Date of positive HPV->2022 us Maggie Omalley NP LAB BODY FLUIDS AND STOOLS O RDERABLES Final Result [facility] [address] [address] Department [place] [address] [facility] * COLONOSCOPY (07/06/2021 10:41 AM BACTERIOLOGY PROFESSOR) Anatomical Region Laterality Modality Other Narrative Procedure Note Terrell Solis MD - 07/06/2021 10:41 AM CST [facility] Patient Name: Bhavna Salazar Procedure Date: 07/06/2021 10:41 AM Date of : 1975 Admit Type: Outpatient Age: 46 Gender: Female Attending MD: Terrell Solis M.D. Room: [facility] ENDOSCOPY ROOM 02 Note Status: Finalized [...] The scope was passed under direct vision.The [id number] Colonoscope was introducedthrough the anus and advanced to the terminal ileum. The colonoscopy was performed without difficulty. The patient tolerated the procedure well. The qualityof the bowel preparation was evaluated using the BBPS ([place] Bowel Preparation Scale) with scores of:Right Colon [...] - If you have issues please call [facility] ([facility]) at [phone]. If it is after hours, please call [phone] and ask for the GI fellow composition floor layer. Attending Participation: I personally performed the entire procedure. Electronically by Terrell Solis M.D. Terrell Solis M.D. 07/06/2021 11:36:26 AM . Number of Addenda: 0 Note Initiated On: 07/06/2021 10:41 AM Recognized by the [employer] for promoting quality in endoscopy us Terrell Solis MD ENDOSCOPY PROCEDURES Heather l Result from Last 3 Months or Most Recently Relevant to Health Maintenance Insurance SAURABH RIVERA SAURABH RIVERA Advance Directives For more information, please contact: [phone] * Full Code (Latest Code Status on File) Date Activated Date Inactivated Comments 07/06/2021 10:49 AM 07/06/2021 4:27 PM Care Teams Avid Editor Relationship Specialty Start Date End Date Antonio Varghese DO [facility] [address] [place] [id number] PCP - General Family Medicine 03/26/23
--- OUTSIDE RECORDS SUMMARY | 2024-08-01 09:14 | XMS_ITS | Continuity of Care Document ---
Author Organization [facility] Address [address] [place] [address] Phone Care Team Providers Care Braider Tender Name Role Phone Unavailable Unavailable Unavailable Rodri RN, Raquel Unavailable Unavailable Procedures Procedure Date Voided Encounter Advance Directives Directive Yes / No Effective Date File Name No Information Encounters Encounter Description Practice Location Reason(s) For Visit Diagnoses Date Provider Providers Copied on Encounter [employer] [facility] , [address], [place], [place], [id number], tel:[phone] [facility] No Information 0 No Information Consulting Provider: Raquel Mace, [address], [place], [address]. tel:[phone] [facility] , [address], [place], [place], [id number], tel:[phone] [facility] No Information 0 No Information Family History Family Member Type Diagnosis Age At Onset No Information Payers Payer name Insurance type Covered constitution party ID Authoriza tion(s) No Information Social History [...]
--- OUTSIDE RECORDS SUMMARY | 2024-08-01 09:14 | XMS_ITS | Referral Summary ---
Author Organization [facility] Address [address] [place] [address] Care Team Providers Care Industrial Electrician Journeyman Name Role Phone Abimael Antonio MORRIS Primary Care Provider [phone] Encounters Date Type Department Care Team Description 06/20/2024 E-Visit [facility] [address] [facility] [address] [place] [id number] Maggie Omalley, CUT LACE MACHINE OPERATOR Your Medications 06/02/2024 12:38 PM MATTRESS MAKER - 06/02/2024 11:59 PM MATTRESS MAKER Hospital Encounter [address] [place] [address] Screening mammogram, encounter for Discharge Disposition: Discharge to home or self care from Last 3 Months Allergies No known [...] on file Legal Sex Female 9:13 PM MATTRESS MAKER Gender Identity Female 03/06/2019 2:21 PM CDT Sexual Orientation Not on file 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 Not on file Not on fi le Last Filed Vital Signs Vital Sign Reading Time Taken Comments Blood Pressure 120/80 04/16/2024 7:47 AM CDT Pulse 73 07/06/2021 12:00 PM MATTRESS MAKER Temperature 36 C (96.8 F) 07/06/2021 11:38 AM MATTRESS MAKER Respiratory Rate 15 07/06/2021 12:00 PM MATTRESS MAKER Oxygen Saturation 99% 07/06/2021 12:00 PM MATTRESS MAKER Inhaled Oxygen Concentration - - Weight 90.7 kg (200 lb) 04/16/2024 7:47 AM CDT Height 157.5 cm (5' 2 ) 04/16/2024 7:47 AM CDT Body Mass Index 36.58 04/16/2024 7:47 AM CDT Plan of Treatment Not on file Procedures Procedure Name Priority Date/Time Associated Diagnosis Comments SCREENING MAMMOGRAM BILATERAL W DWIGHT Schedule Routine, Read Routine (OP Routine) 06/02/2024 1:00 PM MATTRESS MAKER Screening mammogram, encounter for HIGH RISK HPV DNA DETECTION WITH GENOTYPING Routine 04/16/2024 8:35 AM CDT Cervical cancer screening COLONOSCOPY 07/06/2021 10:41 AM MATTRESS MAKER from Last 3 Months or Most Recently Relevant to Health Maintenance Results * Screening Mammogram Bilateral W Dwight (06/02/2024 1:00 PM MATTRESS MAKER) Anatomical Region Laterality Modality Breast Bilateral Mammography Narrative 06/02/2024 5:00 PM MATTRESS MAKER Mammogram Technique: Bilateral Digital Breast Tomosynthesis, Bilateral C-view 2D Screening mammogram. Views obtained: bilateral craniocaudal and bilateral mediolateral oblique. Computer Aided Detection was performed. Mammogram Findings: The present examination has been compared to prior imaging studies performed at [facility] on 11/19/2014, [...] compared to prior imaging studies performed at [facility] on 11/19/2014, [...] HPV HR 16 Not Detected Not Detected [facility] Comment:Testing performed by : [facility], [address] [place]., [address] HPV HR 18 Not Detected Not Detected [facility] Comment:Testing performed by : [facility], [address] [place]., [address] HPV HR Non 16/18 Not Detected Not [...] this test have been verified by the [facility] Molecular Infectious Disease laboratory. Correlate with separately reported cytology results, as applicable. Interpretive data last revised 23 Testing performed by: [facility], [address] [place]., [address] Endocervical 04/16/2024 8:35 AM CDT 04/17/2024 12:45 PM CDT Narrative [facility] GRACIA - 04/18/2024 3:11 AM CDT Clinical history and diagnosis->hx of hpv 18 low grade on bx 2022 Number of vials->1 Testing type->Screening Last menstrual period (date if known)->03/30 Previous positive HPV history?->Yes Date of positive HPV->2022 us Maggie Omalley NP LAB BODY FLUIDS AND STOOLS O RDERABLES Final Result [facility] [address] [address] Department [place] [address] [facility] * COLONOSCOPY (07/06/2021 10:41 AM MATTRESS MAKER) Anatomical Region Laterality Modality Other Narrative Procedure Note Terrell Solis MD - 07/06/2021 10:41 AM CST [facility] Patient Name: Bhavna Salazar Procedure Date: 07/06/2021 10:41 AM Date of : 1975 Admit Type: Outpatient Age: 46 Gender: Female Attending MD: Terrell Solis M.D. Room: [facility] ENDOSCOPY ROOM 02 Note Status: Finalized Procedure: [...] The scope was passed under direct vision.The [id number] Colonoscope was introducedthrough the anus and advanced to the terminal ileum. The colonoscopy was performed without difficulty. The patient tolerated the procedure well. The qualityof the bowel preparation was evaluated using the BBPS ([place] Bowel Preparation Scale) with scores of:Right Colon [...] have issues please call [facility] ([facility]) at [phone]. If it is after hours, please call [phone] and ask for the GI fellow transition of care specialist. Attending Participation: I personally performed the entire procedure. Electronically by Terrell Solis M.D. Terrell Solis M.D. 07/06/2021 11:36:26 AM . Number of Addenda: 0 Note Initiated On: 07/06/2021 10:41 AM Recognized by the [place] [employer] Gastrointestinal Endoscopy for promoting quality in endoscopy Terrell Solis MD ENDOSCOPY PROCEDURES Heather l Result from Last 3 Months or Most Recently Relevant to Health Maintenance Insurance SAURABH CROCKETTEW [employer] Advance Directives For more information, please contact: [phone] * Full Code (Latest Code Status on File) Date Activated Date Inactivated Comments 07/06/2021 10:49 AM 07/06/2021 4:27 PM Care Teams Industrial Electrician Journeyman Relationship Specialty Start Date End Date Antonio Varghese DO [address] [place] [address] [address] PCP - General Family Medicine 03/26/23
--- OUTSIDE RECORDS SUMMARY | 2024-08-01 09:14 | XMS_ITS | Referral Summary ---
Author Organization [facility] Address [address] [place] [address] Care Team Providers Care Fly Tier Name Role Phone Unavailable Primary Care Provider Unavailabl e Source Comments [facility],non-owned Affiliates and Associated Physician Practices is amultiple site organization consisting of ambulatory clinics and hospital sitesin [place], [place], [place] and [place]. This disclosure is being madepursuant to the Care Everywhere program and may not contain all information available regarding this patient. Last updated 18.[facility] Allergies No known active allergies Medications * [...] 200 mg/dL [facility] Comment: Test Performed at: [facility] [address] [place] [address] TIRSO CORTES MD HDL Cholesterol 61 > [...] Carpenter MD LAB - CHEMISTRY CHANTELLE CELAYA [facility] Organization Address City/State/ZIP Co de Phone Number [facility] [address] [place] [address] from Last 3 Months or Most Recently Relevant to Health Maintenance
--- OUTSIDE RECORDS SUMMARY | 2024-08-01 09:14 | XMS_ITS | Patient Health Summary ---
Author Organization [facility] Address [address] [place] [address] Care Team Providers Care It Program Engagement Director Name Role Phone Unavailable Primary Care Provider Unavailabl e Note from [facility],non-owned Affiliates and Associated Physician Practices is amultiple site organization consisting of ambulatory clinics and hospital sitesin [place], [place], [place] and [place]. This disclosure is being madepursuant to the Care Everywhere program and may not contain all information available regarding this patient. Last updated 18.[facility] Allergies No known active allergies Medications [...] Comment: REPORT COMMENT: FASTING Test Performed at: [place] [address] TIRSO CORTES MD 02/24/2009 10:4 1 AM CDT 02/24/2009 10:42 AM CDT Dorian Carpenter MD LAB - HEMATOLOGY ORD ERABLES [facility] [address] [place] [address] * COMPREHENSIVE METABOLIC PANEL (02/24/2009 10:41 AM [...] 60 U/L [facility] Comment: Test Performed at: [facility] [address] [place] [address] TIRSO CORTES MD 02/24/2009 10:4 1 AM CDT 02/24/2009 10:42 AM CDT Dorian Carpenter MD LAB - CHEMISTRY CHANTELLE CELAYA Performing Organization Address [facility] de Phone Number [facility] [address] [place] [address] * (ABNORMAL) LIPID PROFILE (02/24/2009 10:41 AM CDT) [facility] Signature Cholesterol 211(H) 125 - 200 mg/dL [facility] Comment: Test Performed at: [facility] [address] [place] [address] TIRSO CORTES MD HDL Cholesterol 61 > [...] - CHEMISTRY CHANTELLE CELAYA Performing Organization Address [facility] de Phone Number [facility] [address] [place] [address]
--- OUTSIDE RECORDS SUMMARY | 2024-08-01 09:14 | XMS_ITS | Clinical Summary ---
Author Organization [facility] Address [address] [place] [address] Care Team Providers Care Planer Setup Operator Name Role Phone Unavailable Primary Care Provider Unavailabl e Source Comments [facility],non-owned Affiliates and Associated Physician Practices is amultiple site organization consisting of ambulatory clinics and hospital sitesin [place], [place], [place]. This disclosure is being madepursuant to the Care Everywhere program and may not contain all information available regarding this patient. Last updated 18.[facility] Allergies No known active allergies Medications * [...] 200 mg/dL [facility] Comment: Test Performed at: [facility] [address] [place] [address] TIRSO CORTES MD HDL Cholesterol 61 > [...] Carpenter MD LAB - CHEMISTRY CHANTELLE CELAYA [facility] [address] [place] [address] from Last 3 Months or Most Recently Relevant to Health Maintenance
[2024-08-01 17:51] LABS: Anion Gap 9 mmol/L (4-12); Blood Urea Nitrogen 10 mg/dL (7-17); Calcium 9.1 mg/dL (8.4-10.2); Carbon Dioxide 27 mmol/L (22-30); Chloride 103 mmol/L (98-107); Estimated Glomerular Filt Rate > 60; Glucose 96 mg/dL (65-110); Potassium 3.5 mmol/L (3.4-5.0); Sodium 139 mmol/L (137-145)
[2024-08-01 17:54] LABS: Hemoglobin A1C 6.3 % (<5.7)
== END 2024-08-01 09:11 | disposition home or self-care (01) ==
LOC: ANHGOSHLAB 09:12
PROVIDERS: PCP Nurse Practitioner; Visit Provider Clinical Nurse Specialist
DX: R73.9 Hyperglycemia, unspecified (principal); I10 Essential (primary) hypertension
CPT/HCPCS: 36415; 80048; 83036

== ENCOUNTER 2024-09-11 14:33 | Outpatient (CLI) | payer OTHER, SELFPAY ==
--- NOTE | ~2024-09-11 | XR_ITS ---
XR ankle RT min 3V 09/11/2024 15:08 INDICATION: Right ankle pain PROCEDURE: 4 views right ankle COMPARISON: No prior studies for comparison. FINDINGS: Fracture, dislocation or subluxation is not identified. There are degenerative calcaneal en thesophytes. The soft tissues appear within normal limits. No foreign bodies are identified. IMPRESSION: 1: NO ACUTE BONE OR JOINT ABNORMALITY IDENTIFIED. Reviewed, dictated and finalized at location A.
--- NOTE | ~2024-09-11 | XR_ITS ---
XR knee RT 3V 09/11/2024 15:08 Indication: Right knee pain Procedure: 3 views right knee Comparison: No prior studies for comparison. Findings: No fracture, subluxation or dislocation. No significant joint effusion. No foreign bodies. Impression: 1: No significant bone or joint abnormality. Reviewed, dictated and finalized at location A. Impression: 1: No significant bone or joint abnormality.
== END 2024-09-11 14:34 | disposition home or self-care (01) ==
PROVIDERS: PCP Clinical Nurse Specialist; Visit Provider Clinical Nurse Specialist
DX: M25.571 Pain in right ankle and joints of right foot (principal); M25.561 Pain in right knee; W19.XXXA Unspecified fall, initial encounter
CPT/HCPCS: 73562; 73610

== ENCOUNTER 2024-12-15 10:06 | Outpatient (CLI) | payer OTHER, SELFPAY ==
[2024-12-15 12:39] LABS: Anion Gap 6 mmol/L (4-12); Blood Urea Nitrogen 8 mg/dL (7-17); Calcium 9.2 mg/dL (8.4-10.2); Carbon Dioxide 29 mmol/L (22-30); Chloride 102 mmol/L (98-107); Estimated Glomerular Filt Rate > 60; Glucose 103 mg/dL (65-110); Potassium 3.2 mmol/L (3.4-5.0); Sodium 137 mmol/L (137-145)
[2024-12-15 14:49] LABS: Hemoglobin A1C. 6.2 % (<5.7)
== END 2024-12-15 10:07 | disposition home or self-care (01) ==
LOC: ANHGOSHLAB 10:07
PROVIDERS: PCP Clinical Nurse Specialist; Visit Provider Clinical Nurse Specialist
DX: I10 Essential (primary) hypertension (principal); R73.01 Impaired fasting glucose
CPT/HCPCS: 36415; 80048; 83036

== ENCOUNTER 2025-04-03 08:55 | Outpatient (CLI) | payer OTHER, SELFPAY ==
--- OUTSIDE RECORDS SUMMARY | 2025-04-03 09:13 | XMS_ITS | Clinical Summary ---
Author Organization [facility] Address [address] [place] [address] Care Team Providers Care Modern And Contemporary Art Curator Name Role Phone Unavailable Primary Care Provider Unavailabl e Source Comments [facility] [employer],non-owned Affiliates and Associated Physician Practices is amultiple site organization consisting of ambulatory clinics and hospital sitesin [place], [place], [place] and [place]. This disclosure is being madepursuant to the Care Everywhere program and may not contain all information available regarding this patient. Last updated 18.[facility] [employer] Allergies No known active allergies Medications * Be aware that medications may not be up to date on this document. Alwaysverify current medications with the patient. ciprofloxacin 0.3% (CILOXAN) 0.3 % ophthalmic solution Instill 1 Drop into right eye every 4 hours while awake. 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 ENGINEER Gender Identity Not on file Sexual Orientation [...] - COLON CA SCREENING 1975 MAMMOGRAM 1975 HIV SCREENING 1990 HEPATITIS C SCREENING 04/03/1993 DTAP/TDAP/TD VACCINES (1 - Tdap) 1994 HEPATITIS B VACCINE (1 of 3 - 19+ 3-dose series) 1994 LIPID TESTING 02/24/2014 02/24/2009 DEPRESSION SCREENING 06/18/2024 COVID-19 VACCINE (2023-2 5 season) 2025 INFLUENZA VACCINE (#1) 2025 ZOSTER VACCINE (1 of 2) 2025 HIB VACCINE Aged Out No longer eligi ble based on patient's age to complete this topic HPV VACCINE Aged Out No longer eligi ble based on patient's age to complete this topic MENINGOCOCCAL (Group B) VACC INE SHARED DECISION-MAKING Aged Out No longer eligibl e based on patient's age to complete this topic MENINGOCOCCAL GROUPS A/C/Y/W VACCINE Aged Out No longer eligible b ased on patient's age to complete this topic Procedures Procedure Name Priority Date/Time Associated Diagnosis Comments LIPID PROFILE 02/24/2009 10:41 AM CDT from Last 3 Months or Most Recently Relevant to Health Maintenance Results * (ABNORMAL) LIPID PROFILE (02/24/2009 10:41 AM CDT) Cholesterol 211(H) 125 - 200 mg/dL [facility] Comment: Test Performed at: [facility] [address] [place] [address] TIRSO CORTES MD HDL Cholesterol 61 > [...] CDT Dorian Carpenter MD LAB - CHEMISTRY ORDERABLES F inal Result [facility] [address] [place] [address] from Last 3 Months or Most Recently Relevant to Health Maintenance
--- OUTSIDE RECORDS SUMMARY | 2025-04-03 09:14 | XMS_ITS | Clinical Summary ---
Author Organization [facility] Address [address] [place] [address] Care Team Providers Care Seismic Prospecting Observer Helper Name Role Phone Antonio Varghese Primary Care Provider [phone] Allergies No known active allergies Medications atorvastatin [...] times a day 30 g 2 Active amLODIPine (NORVASC) 5 mg tablet Take 1 [...] administration. Active valACYclovir (VALTREX) 1 gram tablet TAKE 1 TABLET (1,000 MG TOTAL) BY MOUTH EVERY 12 HOURS 180 tablet 1 5 Active Hospital, Clinic, or Other Facility Administered Medication Ordered Dose Route Frequency Start Date End Date Status levonorgestreL (MIRENA) 20 mcg/24 hours (6 yrs) 52 mg IUDIndications:Enc ounter for insertion of Mirena IUD intrauterine Continuous (implanted device) 08/18/2020 Active Active Problems Problem Noted Date Diagnosed Date Trichomonas vaginitis 01/27/2025 Overview (01/27/2025): Dx 01/27/25 Encounter for insertion of Mirena IUD 08/16/2020 [...] Encounters Date Type Department Care Team Description 01/27/2025 1:06 PM CDT - 01/27/2025 11:59 PM CDT Hospital Encounter [address] [id number] Discharge from the vagina; Spotting; Vaginal odor Discharge Disposition: Discharge to home or self care 01/27/2025 1:00 PM CDT Clinical Support [facility] [address] [place] [id number] Discharge from the vagina (Primary Dx); Vaginal odor; Spotting 01/27/2025 Results Follow-Up [address] [address] Haydee Rachel MD Vaginitis panel Vaginal, Trichomonas vaginalis PCR Vaginal, N. gonorrhoeae/C. trachomatis Amplification Vaginal from Last 3 Months Immunizations Immunization Administration Dates Next Due HPV9 10/31/2023,07/03/2023,05/03/2023 Surgical [...] on file Legal Sex Female 9:13 PM SPORTS EDITOR Gender Identity Female 03/06/2019 2:21 PM CDT [...] AM CDT Pulse 73 07/06/2021 12:00 PM SPORTS EDITOR Temperature 36 C (96.8 F) 07/06/2021 11:38 AM SPORTS EDITOR Respiratory Rate 15 07/06/2021 12:00 PM SPORTS EDITOR Oxygen Saturation 99% 07/06/2021 12:00 PM SPORTS EDITOR Inhaled Oxygen Concentration - - Weight 90.7 kg (200 lb) 04/16/2024 7:47 AM CDT Height 157.5 cm (5' 2) 04/16/2024 7:47 AM CDT Body Mass Index 36.58 04/16/2024 7:47 AM CDT Plan of Treatment Health Maintenance Due Date Last Done Comments Hepatitis C Screening 1975 DTaP/Tdap/Td Vaccine (1 - Tdap) 1986 Hepatitis B Screening 1993 Depression Screening 12/24/2018 12/24/2017 Influenza Vaccine (#1) 2025 Cervical Cancer Screening 04/16/20252023, 04/16/2024, 03/26/2023, Additional history exists Regular Well Visit/Exam 18-64 04/16/2025 04/16/2024, 03/26/2023, 03/22/2022, Additional history exists Breast Cancer Screening-Mammogram 06/02/2025 06/02/2024, 05/22/2023, 05/15/2022, Additional history exists Colon Cancer Screening-Colonoscopy 07/06/2031 07/06/2021 Pneumococcal vaccine <65 Aged Out No longer eligible based on patient's age to complete this topic Procedures Procedure Name Priority Date/Time Associated Diagnosis Comments VAGINITIS PANEL Routine 01/27/2025 3:55 PM CDT Discharge from the vagina Vaginal odor N. GONORRHOEAE/C. TRACHOMATIS AMPLIFICATION Routine 01/27/2025 3:55 PM CDT Discharge from the vagina TRICHOMONAS VAGINALIS PCR Routine 01/27/2025 3:55 PM CDT Discharge from the vagina Spotting SCREENING MAMMOGRAM BILATERAL W DWIGHT Schedule Routine, Read Routine (OP Routine) 06/02/2024 1:00 PM SPORTS EDITOR Screening mammogram, encounter for HIGH RISK HPV DNA DETECTION WITH GENOTYPING Routine 04/16/2024 8:35 AM CDT Cervical cancer screening COLONOSCOPY 07/06/2021 10:41 AM SPORTS EDITOR from Last 3 Months or Most Recently Relevant to Health Maintenance Results * N. gonorrhoeae/C. trachomatis Amplification Vaginal (01/27/2025 3:55 PM CDT) C. trachomatis Not Detected [facility] N. gonorrhoeae Not Detected [facility] Comment: Interpretive Data This assay detects Chlamydia trachomatis and Neisseria gonorrhoeae by nucleic acid amplification testing (NAAT). This assay has been cleared by the [place] Food and Drug administration. The performance characteristics of this test have been verified by the [facility] Molecular Infectious Disease laboratory. The performance characteristics of this test have not been evaluated in individuals less than 14 years of age. Current Interpretive Data was last revised on 2023. Vaginal (None) 01/27/2025 3: 55 PM CDT 01/27/2025 4:09 PM CDT Haydee Rachel MD LAB MICROBIOLOGY - [employer] ORDERABLES Final Result [facility] Department [place] [address] [facility] * (ABNORMAL) Trichomonas vaginalis PCR Vaginal (01/27/2025 3:55 PM CDT) Trichomonas DNA Detected( A) [facility] Comment: Interpretive Data This assay detects Trichomonas vaginalis by nucleic acid amplification testing (NAAT). This assay has been cleared by the [place] Food and Drug administration. The performance characteristics of this test have been verified by the [facility] Molecular Infectious Disease laboratory. The performance of this test has not been evaluated in individuals less than 18 years of age. Current Interpretive Data was last revised on 2023. Vaginal 01/27/2025 3:55 PM CDT 01/27/2025 4:09 PM CDT us Haydee Rachel MD LAB MICROBIOLOGY - [employer] ORDERABLES Final Result Performing Organization Address City/State/[facility] Co de Phone Number [facility] TANG [facility] Department [place] [address] [facility] * (ABNORMAL) Vaginitis panel Vaginal (01/27/2025 3:55 PM CDT) Bacterial Vaginosis Detected(A) Not Detected [facility] Comment:The BV organism targ ets of this test can be commensal in women; results should be considered in conjunction with clinical presentation to determine the disease status. Julianna group Detected(A) Not Detected [facility] Comment:Julianna species can be present as commensal organisms in women; results should be considered in conjunction with clinical presentation to determine the disease status. Julianna glabrata/ krusei Not Detected Not Detected [facility] Trichomonas DNA Detected(A) Not Detected [facility] Vaginal 01/27/2025 3:55 PM CDT 01/27/2025 4:07 PM CDT Haydee Rachel MD LAB MICROBIOLOGY - [facility] ORDERABLES Final Result Performing Organization Address [facility] Co de Phone Number MARU [facility] Emily [facility] Department [place] [address] [facility] * Screening Mammogram Bilateral W Dwight (06/02/2024 1:00 PM SPORTS EDITOR) Anatomical Region Laterality Modality Breast Bilateral Mammography Narrative 06/02/2024 5:00 PM SPORTS EDITOR Mammogram Technique: Bilateral Digital Breast Tomosynthesis, Bilateral C-view 2D Screening mammogram. Views obtained: bilateral craniocaudal and bilateral mediolateral oblique. Computer Aided Detection was performed. Mammogram Findings: The present examination has been compared to prior imaging studies performed at [facility] on 11/19/2014, 12/22/2015, 12/22/2016, 12/24/2017, 03/08/2020, [...] compared to prior imaging studies performed at [facility] on 11/19/2014, 12/22/2015, 12/22/2016, 12/24/2017, 03/08/2020, [...] HPV HR 16 Not Detected Not Detected [facility] Comment:Testing performed by : [facility], [address] [facility]., [address] HPV HR 18 Not Detected Not Detected [facility] Comment:Testing performed by : [facility], [address] [facility] [address] HPV HR Non 16/18 Not Detected Not [...] this test have been verified by the [facility] Molecular Infectious Disease laboratory. Correlate with separately reported cytology results, as applicable. Interpretive data last revised 22 Testing performed by: [facility], [address] [place]., [address] Endocervical 04/16/2024 8:35 AM CDT 04/17/2024 12:45 PM CDT Narrative [facility] GRACIA - 04/18/2024 3:11 AM CDT Clinical history and diagnosis->hx of hpv 18 low grade on bx 2022 Number of vials->1 Testing type->Screening Last menstrual period (date if known)->03/30 Previous positive HPV history?->Yes Date of positive HPV->2022 Maggie Omalley NP LAB BODY FLUIDS AND STOOLS O RDERABLES Final Result [facility] [address] Department [place] [address] [facility] * COLONOSCOPY (07/06/2021 10:41 AM SPORTS EDITOR) Anatomical Region Laterality Modality Other Narrative Procedure Note Terrell Solis MD - 07/06/2021 10:41 AM CST [facility] Patient Name: Bhavna Salazar Procedure Date: 07/06/2021 10:41 AM Date of : 1975 Admit Type: Outpatient Age: 46 Gender: Female Attending MD: Terrell Solis M.D. Room: [facility] ENDOSCOPY ROOM 02 Note Status: Finalized [...] The scope was passed under direct vision.The [id number] Colonoscope was introducedthrough the anus and advanced to the terminal ileum. The colonoscopy was performed without difficulty. The patient tolerated the procedure well. The qualityof the bowel preparation was evaluated using the BBPS ([place] Bowel Preparation Scale) with scores of:Right Colon [...] If you have issues please call Taina ([facility]) at [phone]. If it is after hours, please call [phone] and ask for the GI fellow oncology social work. Attending Participation: I personally performed the entire procedure. Electronically by Terrell Solsi M.D. Terrell Solis M.D. 07/06/2021 11:36:26 AM . Number of Addenda: 0 Note Initiated On: 07/06/2021 10:41 AM Recognized by the [place] [employer] for promoting quality in endoscopy us Terrell Solis MD ENDOSCOPY PROCEDURES Heather l Result from Last 3 Months or Most Recently Relevant to Health Maintenance [facility] C[facility] IBEW Advance Directives For more information, please contact: [phone] * Full Code (Latest Code Status on File) Date Activated Date Inactivated Comments 07/06/2021 10:49 AM 07/06/2021 4:27 PM Care Teams Seismic Prospecting Observer Helper Relationship Specialty Start Date End Date Antonio Varghese DO [address] [place] [address] [address] PCP - General Family Medicine 03/26/23
[2025-04-03 12:45] LABS: Hematocrit 43.5 % (37.0-47.0); Hemoglobin 14.2 g/dL (12.0-15.0); Immature Granulocyte Percent A 0.3 % (0-0.5); Lymphocytes Absolute Auto 1.03 K/mm3 (0.9-3.2); Mean Corpuscular HGB Conc 32.6 g/dl (32-36); Mean Corpuscular Hemoglobin 33.2 pg (26-34); Mean Corpuscular Volume 101.6 fl (80-100); Nucleated Red Blood Cells Absolute Auto 0.000 K/mm3 (0.0-0.012); Nucleated Red Blood Cells Perc 0.0 % (0.0-0.2); Platelet Count Result 274 k/mm3 (150-375); Red Blood Count 4.28 M/mm3 (4.2-5.4); White Blood Count 3.4 K/mm3 (4.5-10.0)
[2025-04-03 12:56] LABS: Alanine Aminotransferase 29 U/L (6-35); Albumin Level 4.2 g/dL (3.5-5.1); Alkaline Phosphatase 77 U/L (38-126); Anion Gap 6 mmol/L (4-12); Aspartate Amino Transferase 48 U/L (14-36); Bilirubin,Total 0.7 mg/dL (0.2-1.3); Blood Urea Nitrogen 10 mg/dL (7-17); Calcium 9.2 mg/dL (8.4-10.2); Carbon Dioxide 28 mmol/L (22-30); Chloride 103 mmol/L (98-107); Cholesterol 182 mg/dL (0-200); Estimated Glomerular Filt Rate > 60; Glucose 104 mg/dL (65-110); HDL Direct 52 mg/dL; Potassium 3.8 mmol/L (3.4-5.0); Sodium 137 mmol/L (137-145); Total Protein 7.9 g/dL (6.3-8.2); Triglycerides 64 mg/dL (<150)
[2025-04-03 13:33] LABS: MALB Creatinine Ratio 85.1 mg/g (0-30); Thyroid Stimulating Hormone 2.130 uIU/mL (0.465-4.680)
[2025-04-03 14:55] LABS: Hemoglobin A1C 5.9 % (<5.7)
== END 2025-04-03 08:56 | disposition home or self-care (01) ==
LOC: ANHGOSHLAB 08:56
PROVIDERS: PCP Clinical Nurse Specialist; Visit Provider Clinical Nurse Specialist
DX: R73.01 Impaired fasting glucose (principal); I10 Essential (primary) hypertension; E78.49 Other hyperlipidemia; Z13.29 Encounter for screening for other suspected endocrine disorder
CPT/HCPCS: 36415; 80053; 80061; 82043; 83036; 84443; 85025

== ENCOUNTER 2025-06-17 11:00 | Outpatient (CLI) | payer OTHER, SELFPAY ==
--- OUTSIDE RECORDS SUMMARY | 2025-06-17 11:18 | XMS_ITS | Clinical Summary ---
Author Organization [facility] Address [address] [place] [address] Care Team Providers Care Construction Project Manager Name Role Phone Antonio Varghese Primary Care Provider [phone] Allergies No known active allergies Medications atorvastatin [...] Encounters Date Type Department Care Team Description 06/04/2025 2:07 PM RN FIELD - 06/04/2025 11:59 PM RN FIELD Hospital Encounter [facility] [address] [facility] [address] [place] [address] Screening mammogram, encounter for Discharge Disposition: Discharge to home or self care from Last 3 Months Immunizations Immunization Administration [...] 2 TNBC Breast cancer Mother's Sister 3 Ovarian cancer Neg Hx Prostate cancer Neg Hx Relation Name Status Comments Father Austyn Alive [...] on file Legal Sex Female 9:13 PM RN FIELD Gender Identity Female 03/06/2019 2:21 PM CDT Sexual Orientation Not on file 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 Not on file Not on fi le Obstetrics History Para Term AB IAB SAB Ectopic Multiple Livin g Live Births 5 3 2 2 3 3 Date Outcome GA Total Labor Labor/2nd/3rd Weight Sex Type Anes PTL Kim A1 A5 Name Clin Para Para Para IAB IAB Last Filed Vital Signs Vital Sign Reading Time Taken Comments Blood Pressure 120/80 04/16/2024 7:47 AM CDT Pulse 73 07/06/2021 12:00 PM RN FIELD Temperature 36 C (96.8 F) 07/06/2021 11:38 AM RN FIELD Respiratory Rate 15 07/06/2021 12:00 PM RN FIELD Oxygen Saturation 99% 07/06/2021 12:00 PM RN FIELD Inhaled Oxygen Concentration - - Weight 88.5 kg (195 lb) 06/04/2025 2:18 PM RN FIELD Height 157.5 cm (5' 2) 04/16/2024 7:47 AM CDT Body Mass Index 35.67 04/16/2024 7:47 AM CDT Plan of Treatment Health Maintenance Due Date Last Done Comments Hepatitis C Screening 1975 DTaP/Tdap/Td Vaccine (1 - Tdap) 1986 Hepatitis B Screening 1993 Depression Screening 12/24/2018 12/24/2017 Influenza Vaccine (#1) 2025 Zoster Vaccine (1 of 2) 2025 Cervical Cancer Screening 04/16/20252023, 04/16/2024, 03/26/2023, Additional history exists Regular Well Visit/Exam 18-64 04/16/2025 04/16/2024, 03/26/2023, 03/22/2022, Additional history exists Breast Cancer Screening-Mammogram 06/04/2026 06/04/2025, 06/02/2024, 05/22/2023, Additional history exists Colon Cancer Screening-Colonoscopy 07/06/2031 07/06/2021 Pneumococcal vaccine <65 Aged Out No longer eligible based on patient's age to complete this topic Procedures Procedure Name Priority Date/Time Associated Diagnosis Comments SCREENING MAMMOGRAM BILATERAL W DWIGHT Schedule Routine, Read Routine (OP Routine) 06/04/2025 2:24 PM RN FIELD Screening mammogram, encounter for HIGH RISK HPV DNA DETECTION WITH GENOTYPING Routine 04/16/2024 8:35 AM CDT Cervical cancer screening COLONOSCOPY 07/06/2021 10:41 AM RN FIELD from Last 3 Months or Most Recently Relevant to Health Maintenance Results * Screening Mammogram Bilateral W Dwight (06/04/2025 2:24 PM RN FIELD) Anatomical Region Laterality Modality Breast Bilateral Mammography Impressions 06/05/2025 1:36 PM RN FIELD Bilateral No evidence of malignancy in either breast. OVERALL BI-RADS FINAL ASSESSMENT: 1 - Negative RECOMMENDATION: Recommend bilateral annual screening mammography. Narrative 06/05/2025 1:36 PM RN FIELD EXAMINATION: Screening Mammogram Bilateral W Dwight: 06/04/2025 COMPARISON: Relevant prior studies available at the time of interpretation were reviewed, including the most recent mammogram on: 06/02/2024. TECHNIQUE: Mammography was performed with 2D and 3D digital breast tomosynthesis (DBT) images. CAD was utilized. BREAST PARENCHYMAL COMPOSITION: There are scattered areas of fibroglandular density. FINDINGS: Bilateral There is no suspicious mass, calcification, or architectural distortion in either breast. Self Screening Mammogram IMG MAMMO PROCEDURES Fi nal Result * High Risk HPV DNA Detection with Genotyping (Molecular component) (04/16/2024 8:35 AM CDT) HPV HR 16 Not Detected Not Detected [facility] Comment:Testing performed by : [facility], [address] [place]., [address] HPV HR 18 Not Detected Not Detected [facility] Comment:Testing performed by : [facility], [address] [place]., [address] HPV HR Non 16/18 Not Detected Not [...] this test have been verified by the [facility] Molecular Infectious Disease laboratory. Correlate with separately reported cytology results, as applicable. Interpretive data last revised 22 Testing performed by: [facility], [address] [place]., [address] Endocervical 04/16/2024 8:35 AM CDT 04/17/2024 12:45 PM CDT Narrative [facility] - 04/18/2024 3:11 AM CDT Clinical history and diagnosis->hx of hpv 18 low grade on bx 2022 Number of vials->1 Testing type->Screening Last menstrual period (date if known)->03/30 Previous positive HPV history?->Yes Date of positive HPV->2022 Maggie D. Omalley COMMERCIAL DESIGNER LAB BODY FLUIDS AND STOOLS O RDERABLES Final Result [facility] [address] Department [place] [address] [facility] * COLONOSCOPY (07/06/2021 10:41 AM RN FIELD) Anatomical Region Laterality Modality Other Narrative Procedure Note Terrell Solis MD - 07/06/2021 10:41 AM CST [facility] Patient Name: Bhavna Salazar Procedure Date: 07/06/2021 10:41 AM Date of : 1975 Admit Type: Outpatient Age: 46 Gender: Female Attending MD: Terrell Solis M.D. Room: [facility] ENDOSCOPY ROOM 02 Note Status: Finalized [...] The scope was passed under direct vision.The [id number] Colonoscope was introducedthrough the anus and advanced to the terminal ileum. The colonoscopy was performed without difficulty. The patient tolerated the procedure well. The qualityof the bowel preparation was evaluated using the BBPS ([place] Bowel Preparation Scale) with scores of:Right Colon [...] If you have issues please call Taina HATHAWAY) at [phone]. If it is after hours, please call [phone] and ask for the GI fellow collection agent. Attending Participation: I personally performed the entire procedure. Electronically by Terrell Solis M.D. Terrell Solis M.D. 07/06/2021 11:36:26 AM . Number of Addenda: 0 Note Initiated On: 07/06/2021 10:41 AM Recognized by the [place] [employer] for promoting quality in endoscopy Terrell Solis MD ENDOSCOPY PROCEDURES Heather l Result from Last 3 Months or Most Recently Relevant to Health [place] [address] CIGNA IBEW [facility] HEALTH BENEFIT PLAN [place], [place] Advance Directives For more information, please contact: [phone] * Full Code (Latest Code Status on File) Date Activated Date Inactivated Comments 07/06/2021 10:49 AM 07/06/2021 4:27 PM Care Teams Construction Project Manager Relationship Specialty Start Date End Date Antonio Varghese DO [address] [place] [place] [address] [address] PCP - General Family Medicine 03/26/23
[2025-06-17 19:09] LABS: Anion Gap 5 mmol/L (4-12); Blood Urea Nitrogen 10 mg/dL (7-17); Calcium 9.5 mg/dL (8.4-10.2); Carbon Dioxide 30 mmol/L (22-30); Chloride 104 mmol/L (98-107); Estimated Glomerular Filt Rate > 60; Glucose 99 mg/dL (65-110); Potassium 3.8 mmol/L (3.4-5.0); Sodium 139 mmol/L (137-145)
[2025-06-17 19:25] LABS: MALB Creatinine Ratio 54.9 mg/g (0-30)
== END 2025-06-17 11:01 | disposition home or self-care (01) ==
LOC: ANHGOSHLAB 11:00
PROVIDERS: PCP Clinical Nurse Specialist; Visit Provider Clinical Nurse Specialist
DX: H40.9 Unspecified glaucoma (principal); I10 Essential (primary) hypertension
CPT/HCPCS: 36415; 80048; 82043